=== PATIENT | male | born 1965 | race Caucasian/White ===

== ENCOUNTER 2021-10-15 09:35 | Inpatient (IN) | payer BC, OTHER ==
[2021-10-15 10:19] VITALS: BMI 30.1
[2021-10-15] MEDS ORDERED: NICOTINE 10 MG CARTRIDGE (INHALER) IH PRN (12:00)
[2021-10-15] MEDS ORDERED: LOPERAMIDE HCL 2 MG CAPSULE PO PRN (12:00)
[2021-10-15] MEDS ORDERED: ACETAMINOPHEN 325 MG TABLET (FP) PO PRN (12:00)
[2021-10-15] MEDS ORDERED: MAGNESIUM CITRATE 300 ML BOTTLE PO PRN (12:00)
[2021-10-15] MEDS ORDERED: IBUPROFEN 400 MG TABLET (FP) PO PRN (12:00)
[2021-10-15] MEDS ORDERED: MAGNESIUM HYDROX 2400MG/30ML ORAL SUSPENSION 30 ML CUP PO PRN (12:00)
[2021-10-15] MEDS ORDERED: P-EPHED 60MG/TRIPROLIDI 2.5MG TABLET PO PRN (12:00)
[2021-10-15 16:10] LABS: ALBUMIN 3.9 g/dl (3.4-5.0)
[2021-10-15 16:13] LABS: CALCIUM 9.1 mg/dL (8.5-10.1); CREATININE 1.3 mg/dL (0.55-1.3)
[2021-10-15 16:14] LABS: TOT PROT 7.2 g/dl (6.4-8.2)
[2021-10-15 16:16] LABS: BILIRUBIN,TOTAL 0.7 mg/dL (0.2-1)
[2021-10-15 16:19] LABS: HEMATOCRIT 38.5 % (35.4-49); HEMOGLOBIN 12.6 GM/dL (11.7-16.9); MCH 27.4 pg (25.7-33.7); MCHC 32.9 g/dl (32.0-35.9); MEAN CELL VOLUME 83.4 fl (80-96); MEAN PLT VOLUME 9.3 fl (7.5-11.1); PLATELET COUNT 162 10^3/uL (134-434); RBC 4.61 M/mm3 (4.00-5.60); WHITE BLOOD COUNT 8.8 K/mm3 (4.0-10.0)
[2021-10-15] MEDS: NICOTINE 7 MG/24 HOURS TOPICAL PATCH TD SCH (17:05)
[2021-10-15] MEDS: hydrOXYzine PAMOATE 25 MG CAPSULE (FP) PO SCH ×2 (17:06→17:10)
[2021-10-15] MEDS: PRENATAL VITAMINS W/ FOLIC ACID TABLET (FP) PO SCH (17:06)
[2021-10-15] MEDS ORDERED: TUBERCULIN PPD 5 TU/0.1ML VIAL ID ONE (17:31)
[2021-10-15] MEDS ORDERED: methaDONE HCL 10 MG TABLET PO SCH (18:30)
[2021-10-15] MEDS: MELATONIN 5 MG TABLETS PO SCH (21:46)
[2021-10-15] MEDS: THIAMINE HCL 100 MG TABLET (FP) PO SCH (21:46)
[2021-10-15 22:34] LABS: SYPHILIS W/ RPR CONF REACTIVE (NONREACTIVE)
[2021-10-16] MEDS: NICOTINE 7 MG/24 HOURS TOPICAL PATCH TD SCH (10:08)
[2021-10-16] MEDS: PRENATAL VITAMINS W/ FOLIC ACID TABLET (FP) PO SCH (10:08)
[2021-10-16 11:11] LABS: PH,URINE 5.5 (5.0-8.0); URINE APPEARANCE CLEAR; URINE BILIRUBIN NEGATIVE (NEGATIVE); URINE COLOR YELLOW; URINE GLUCOSE (UA) NEGATIVE (NEGATIVE); URINE KETONE NEGATIVE (NEGATIVE); URINE LEUK ESTERASE NEGATIVE (NEGATIVE); URINE NITRITE NEGATIVE (NEGATIVE); URINE PROTEIN NEGATIVE (NEGATIVE)
[2021-10-16] MEDS ORDERED: IBUPROFEN 400 MG TABLET (FP) PO PRN (12:00)
[2021-10-16] MEDS: METHOCARBAMOL 500 MG TABLET PO PRN (13:01)
[2021-10-16] MEDS: THIAMINE HCL 100 MG TABLET (FP) PO SCH (21:21)
[2021-10-16] MEDS: MELATONIN 5 MG TABLETS PO SCH (21:21)
[2021-10-16] MEDS: MIRTAZAPINE 15 MG TABLET (FP) PO SCH (21:22)
[2021-10-17] MEDS: guaiFENesin 200 MG/10 ML 10 ML UNIT-DOSE CUPS PO PRN (01:49)
[2021-10-17] MEDS: NICOTINE 7 MG/24 HOURS TOPICAL PATCH TD SCH (09:35)
[2021-10-17] MEDS: PARoxetine HCL 10 MG TABLET PO SCH (09:36)
[2021-10-17] MEDS: PRENATAL VITAMINS W/ FOLIC ACID TABLET (FP) PO SCH (09:36)
[2021-10-17] MEDS: NICOTINE 21 MG/24 HOURS TOPICAL PATCH TD SCH (10:19)
[2021-10-17] MEDS: GABAPENTIN 300 MG CAPSULE PO SCH ×2 (14:08→21:04)
[2021-10-17] MEDS: MIRTAZAPINE 15 MG TABLET (FP) PO SCH (21:04)
[2021-10-17] MEDS: MELATONIN 5 MG TABLETS PO SCH (21:04)
[2021-10-17] MEDS: THIAMINE HCL 100 MG TABLET (FP) PO SCH (21:04)
[2021-10-18] MEDS: GABAPENTIN 300 MG CAPSULE PO SCH ×3 (06:16→21:03)
[2021-10-18] MEDS: METHOCARBAMOL 500 MG TABLET PO PRN ×2 (06:16→21:03)
[2021-10-18] MEDS: NICOTINE 21 MG/24 HOURS TOPICAL PATCH TD SCH (09:57)
[2021-10-18] MEDS: PARoxetine HCL 10 MG TABLET PO SCH (09:58)
[2021-10-18] MEDS: PRENATAL VITAMINS W/ FOLIC ACID TABLET (FP) PO SCH (09:59)
[2021-10-18] MEDS: MIRTAZAPINE 15 MG TABLET (FP) PO SCH (21:03)
[2021-10-18] MEDS: THIAMINE HCL 100 MG TABLET (FP) PO SCH (21:03)
[2021-10-18] MEDS: MELATONIN 5 MG TABLETS PO SCH (21:03)
[2021-10-18] MEDS: MAG HYDROX/AL HYDROX/SIMETH 30 ML UNIT-DOSE CUP PO PRN (21:04)
[2021-10-19] MEDS: MAG HYDROX/AL HYDROX/SIMETH 30 ML UNIT-DOSE CUP PO PRN ×2 (06:06→19:17)
[2021-10-19] MEDS: GABAPENTIN 300 MG CAPSULE PO SCH ×3 (06:06→21:38)
[2021-10-19] MEDS: PRENATAL VITAMINS W/ FOLIC ACID TABLET (FP) PO SCH (09:40)
[2021-10-19] MEDS: NICOTINE 21 MG/24 HOURS TOPICAL PATCH TD SCH (09:40)
[2021-10-19] MEDS: PARoxetine HCL 10 MG TABLET PO SCH (09:40)
[2021-10-19] MEDS: METHOCARBAMOL 500 MG TABLET PO PRN (21:38)
[2021-10-19] MEDS: MIRTAZAPINE 15 MG TABLET (FP) PO SCH (21:38)
[2021-10-19] MEDS: THIAMINE HCL 100 MG TABLET (FP) PO SCH (21:38)
[2021-10-19] MEDS: MELATONIN 5 MG TABLETS PO SCH (21:39)
[2021-10-20] MEDS: GABAPENTIN 300 MG CAPSULE PO SCH ×3 (06:10→21:14)
[2021-10-20] MEDS: NICOTINE 21 MG/24 HOURS TOPICAL PATCH TD SCH (09:24)
[2021-10-20] MEDS: PRENATAL VITAMINS W/ FOLIC ACID TABLET (FP) PO SCH (09:24)
[2021-10-20] MEDS: PARoxetine HCL 10 MG TABLET PO SCH (09:24)
[2021-10-20] MEDS: MAG HYDROX/AL HYDROX/SIMETH 30 ML UNIT-DOSE CUP PO PRN (12:19)
[2021-10-20] MEDS: THIAMINE HCL 100 MG TABLET (FP) PO SCH (21:14)
[2021-10-20] MEDS: hydrOXYzine PAMOATE 25 MG CAPSULE (FP) PO PRN (21:14)
[2021-10-20] MEDS: METHOCARBAMOL 500 MG TABLET PO PRN (21:14)
[2021-10-20] MEDS: MIRTAZAPINE 15 MG TABLET (FP) PO SCH (21:14)
[2021-10-20] MEDS: MELATONIN 5 MG TABLETS PO SCH (21:16)
[2021-10-21] MEDS: MAG HYDROX/AL HYDROX/SIMETH 30 ML UNIT-DOSE CUP PO PRN (03:59)
[2021-10-21] MEDS: GABAPENTIN 300 MG CAPSULE PO SCH ×3 (06:25→21:17)
[2021-10-21] MEDS: NICOTINE 21 MG/24 HOURS TOPICAL PATCH TD SCH (09:48)
[2021-10-21] MEDS: PARoxetine HCL 10 MG TABLET PO SCH (09:49)
[2021-10-21] MEDS: PRENATAL VITAMINS W/ FOLIC ACID TABLET (FP) PO SCH (09:49)
[2021-10-21] MEDS: FAMOTIDINE 20 MG TABLET PO SCH ×2 (10:36→21:17)
[2021-10-21] MEDS: MELATONIN 5 MG TABLETS PO SCH (21:17)
[2021-10-21] MEDS: METHOCARBAMOL 500 MG TABLET PO PRN (21:17)
[2021-10-21] MEDS: THIAMINE HCL 100 MG TABLET (FP) PO SCH (21:17)
[2021-10-21] MEDS: MIRTAZAPINE 15 MG TABLET (FP) PO SCH (21:17)
[2021-10-22] MEDS: GABAPENTIN 300 MG CAPSULE PO SCH ×3 (06:28→21:09)
[2021-10-22] MEDS: METHOCARBAMOL 500 MG TABLET PO PRN ×3 (06:28→21:09)
[2021-10-22] MEDS: IBUPROFEN 400 MG TABLET (FP) PO PRN (08:18)
[2021-10-22] MEDS: NICOTINE 21 MG/24 HOURS TOPICAL PATCH TD SCH (09:29)
[2021-10-22] MEDS: LIDOCAINE 5% TOPICAL PATCH TP SCH (09:29)
[2021-10-22] MEDS: FAMOTIDINE 20 MG TABLET PO SCH ×2 (09:29→21:09)
[2021-10-22] MEDS: PRENATAL VITAMINS W/ FOLIC ACID TABLET (FP) PO SCH (09:29)
[2021-10-22] MEDS: PARoxetine HCL 10 MG TABLET PO SCH (09:30)
[2021-10-22] MEDS: MELATONIN 5 MG TABLETS PO SCH (21:09)
[2021-10-22] MEDS: THIAMINE HCL 100 MG TABLET (FP) PO SCH (21:09)
[2021-10-22] MEDS: MIRTAZAPINE 15 MG TABLET (FP) PO SCH (21:09)
[2021-10-22] MEDS: LIDOCAINE PATCH REMOVAL MC SCH (21:10)
[2021-10-22] MEDS: METHYL SALICYLATE/MENTHOL OINT 30 GM TUBE TP SCH (21:10)
[2021-10-23] MEDS: IBUPROFEN 400 MG TABLET (FP) PO PRN (02:50)
[2021-10-23] MEDS: GABAPENTIN 300 MG CAPSULE PO SCH ×3 (06:38→21:14)
[2021-10-23] MEDS: METHOCARBAMOL 500 MG TABLET PO PRN ×2 (06:38→21:14)
[2021-10-23] MEDS: LIDOCAINE 5% TOPICAL PATCH TP SCH (09:14)
[2021-10-23] MEDS: NICOTINE 21 MG/24 HOURS TOPICAL PATCH TD SCH (09:14)
[2021-10-23] MEDS: FAMOTIDINE 20 MG TABLET PO SCH ×2 (09:15→21:14)
[2021-10-23] MEDS: PRENATAL VITAMINS W/ FOLIC ACID TABLET (FP) PO SCH (09:15)
[2021-10-23] MEDS: PARoxetine HCL 10 MG TABLET PO SCH (09:15)
[2021-10-23] MEDS: THIAMINE HCL 100 MG TABLET (FP) PO SCH (21:14)
[2021-10-23] MEDS: MIRTAZAPINE 15 MG TABLET (FP) PO SCH (21:14)
[2021-10-23] MEDS: MELATONIN 5 MG TABLETS PO SCH (21:14)
[2021-10-23] MEDS: METHYL SALICYLATE/MENTHOL OINT 30 GM TUBE TP SCH (21:15)
[2021-10-23] MEDS: LIDOCAINE PATCH REMOVAL MC SCH (21:15)
[2021-10-23] MEDS: TOLNAFTATE 1% CREAM 15 GM TUBE TP SCH (21:59)
[2021-10-24] MEDS: IBUPROFEN 400 MG TABLET (FP) PO PRN (06:08)
[2021-10-24] MEDS: METHOCARBAMOL 500 MG TABLET PO PRN (06:08)
[2021-10-24] MEDS: GABAPENTIN 300 MG CAPSULE PO SCH ×3 (06:08→21:22)
[2021-10-24] MEDS: LIDOCAINE 5% TOPICAL PATCH TP SCH (09:33)
[2021-10-24] MEDS: PARoxetine HCL 10 MG TABLET PO SCH (09:34)
[2021-10-24] MEDS: NICOTINE 21 MG/24 HOURS TOPICAL PATCH TD SCH (09:34)
[2021-10-24] MEDS: PRENATAL VITAMINS W/ FOLIC ACID TABLET (FP) PO SCH (09:34)
[2021-10-24] MEDS: FAMOTIDINE 20 MG TABLET PO SCH ×2 (09:34→21:22)
[2021-10-24] MEDS: TOLNAFTATE 1% CREAM 15 GM TUBE TP SCH ×2 (09:35→21:34)
[2021-10-24] MEDS: THIAMINE HCL 100 MG TABLET (FP) PO SCH (21:22)
[2021-10-24] MEDS: MELATONIN 5 MG TABLETS PO SCH (21:22)
[2021-10-24] MEDS: MIRTAZAPINE 15 MG TABLET (FP) PO SCH (21:22)
[2021-10-24] MEDS: METHYL SALICYLATE/MENTHOL OINT 30 GM TUBE TP SCH (21:23)
[2021-10-24] MEDS: LIDOCAINE PATCH REMOVAL MC SCH (21:23)
[2021-10-25] MEDS: GABAPENTIN 300 MG CAPSULE PO SCH ×3 (06:14→21:53)
[2021-10-25] MEDS: LIDOCAINE 5% TOPICAL PATCH TP SCH (09:37)
[2021-10-25] MEDS: FAMOTIDINE 20 MG TABLET PO SCH ×2 (09:38→21:53)
[2021-10-25] MEDS: TOLNAFTATE 1% CREAM 15 GM TUBE TP SCH ×2 (09:38→21:53)
[2021-10-25] MEDS: PARoxetine HCL 10 MG TABLET PO SCH (09:38)
[2021-10-25] MEDS: NICOTINE 21 MG/24 HOURS TOPICAL PATCH TD SCH (09:38)
[2021-10-25] MEDS: PRENATAL VITAMINS W/ FOLIC ACID TABLET (FP) PO SCH (09:38)
[2021-10-25] MEDS: METHOCARBAMOL 500 MG TABLET PO PRN (14:14)
[2021-10-25] MEDS: hydrOXYzine PAMOATE 25 MG CAPSULE (FP) PO PRN (21:53)
[2021-10-25] MEDS: THIAMINE HCL 100 MG TABLET (FP) PO SCH (21:53)
[2021-10-25] MEDS: LIDOCAINE PATCH REMOVAL MC SCH (21:53)
[2021-10-25] MEDS: MIRTAZAPINE 15 MG TABLET (FP) PO SCH (21:53)
[2021-10-25] MEDS: METHYL SALICYLATE/MENTHOL OINT 30 GM TUBE TP SCH (21:54)
[2021-10-25] MEDS: BACITRACIN 0.9 GM PACKET TP SCH (21:54)
[2021-10-25] MEDS: MELATONIN 5 MG TABLETS PO SCH (21:54)
[2021-10-26] MEDS: METHOCARBAMOL 750 MG TAB PO PRN (06:05)
[2021-10-26] MEDS: GABAPENTIN 300 MG CAPSULE PO SCH ×3 (06:05→21:14)
[2021-10-26] MEDS: IBUPROFEN 400 MG TABLET (FP) PO PRN (08:58)
[2021-10-26] MEDS: PRENATAL VITAMINS W/ FOLIC ACID TABLET (FP) PO SCH (09:01)
[2021-10-26] MEDS: PARoxetine HCL 10 MG TABLET PO SCH (09:01)
[2021-10-26] MEDS: FAMOTIDINE 20 MG TABLET PO SCH ×2 (09:01→21:14)
[2021-10-26] MEDS: LIDOCAINE 5% TOPICAL PATCH TP SCH (09:01)
[2021-10-26] MEDS: BACITRACIN 0.9 GM PACKET TP SCH ×2 (09:01→21:14)
[2021-10-26] MEDS: TOLNAFTATE 1% CREAM 15 GM TUBE TP SCH ×2 (09:01→21:16)
[2021-10-26] MEDS: NICOTINE 21 MG/24 HOURS TOPICAL PATCH TD SCH (09:01)
[2021-10-26] MEDS: THIAMINE HCL 100 MG TABLET (FP) PO SCH (21:14)
[2021-10-26] MEDS: MELATONIN 5 MG TABLETS PO SCH (21:14)
[2021-10-26] MEDS: MIRTAZAPINE 15 MG TABLET (FP) PO SCH (21:14)
[2021-10-26] MEDS: hydrOXYzine PAMOATE 25 MG CAPSULE (FP) PO PRN (21:14)
[2021-10-26] MEDS: LIDOCAINE PATCH REMOVAL MC SCH (21:15)
[2021-10-26] MEDS: METHYL SALICYLATE/MENTHOL OINT 30 GM TUBE TP SCH (21:16)
[2021-10-27] MEDS: METHOCARBAMOL 750 MG TAB PO PRN (06:06)
[2021-10-27] MEDS: GABAPENTIN 300 MG CAPSULE PO SCH ×3 (06:06→21:16)
[2021-10-27] MEDS: NICOTINE 21 MG/24 HOURS TOPICAL PATCH TD SCH (09:31)
[2021-10-27] MEDS: LIDOCAINE 5% TOPICAL PATCH TP SCH (09:31)
[2021-10-27] MEDS: PRENATAL VITAMINS W/ FOLIC ACID TABLET (FP) PO SCH (09:31)
[2021-10-27] MEDS: BACITRACIN 0.9 GM PACKET TP SCH ×2 (09:33→21:16)
[2021-10-27] MEDS: FAMOTIDINE 20 MG TABLET PO SCH ×2 (09:33→21:16)
[2021-10-27] MEDS: TOLNAFTATE 1% CREAM 15 GM TUBE TP SCH ×2 (09:33→21:18)
[2021-10-27] MEDS: PARoxetine HCL 10 MG TABLET PO SCH (09:34)
[2021-10-27] MEDS: hydrOXYzine PAMOATE 25 MG CAPSULE (FP) PO PRN (21:16)
[2021-10-27] MEDS: MIRTAZAPINE 15 MG TABLET (FP) PO SCH (21:16)
[2021-10-27] MEDS: MELATONIN 5 MG TABLETS PO SCH (21:16)
[2021-10-27] MEDS: THIAMINE HCL 100 MG TABLET (FP) PO SCH (21:16)
[2021-10-27] MEDS: METHYL SALICYLATE/MENTHOL OINT 30 GM TUBE TP SCH (21:18)
[2021-10-27] MEDS: LIDOCAINE PATCH REMOVAL MC SCH (21:18)
[2021-10-28] MEDS: GABAPENTIN 300 MG CAPSULE PO SCH ×3 (06:20→21:45)
[2021-10-28] MEDS: PRENATAL VITAMINS W/ FOLIC ACID TABLET (FP) PO SCH (09:51)
[2021-10-28] MEDS: LIDOCAINE 5% TOPICAL PATCH TP SCH (09:51)
[2021-10-28] MEDS: FAMOTIDINE 20 MG TABLET PO SCH ×2 (09:51→21:45)
[2021-10-28] MEDS: TOLNAFTATE 1% CREAM 15 GM TUBE TP SCH ×2 (09:53→22:08)
[2021-10-28] MEDS: BACITRACIN 0.9 GM PACKET TP SCH ×2 (10:12→21:45)
[2021-10-28] MEDS: NICOTINE 21 MG/24 HOURS TOPICAL PATCH TD SCH (10:12)
[2021-10-28] MEDS: PARoxetine HCL 10 MG TABLET PO SCH (10:13)
[2021-10-28] MEDS: MELATONIN 5 MG TABLETS PO SCH (21:45)
[2021-10-28] MEDS: THIAMINE HCL 100 MG TABLET (FP) PO SCH (21:45)
[2021-10-28] MEDS: MIRTAZAPINE 15 MG TABLET (FP) PO SCH (21:45)
[2021-10-28] MEDS: LIDOCAINE PATCH REMOVAL MC SCH (21:45)
[2021-10-28] MEDS: METHYL SALICYLATE/MENTHOL OINT 30 GM TUBE TP SCH (22:07)
[2021-10-29] MEDS: IBUPROFEN 400 MG TABLET (FP) PO PRN (03:30)
[2021-10-29] MEDS: METHOCARBAMOL 750 MG TAB PO PRN (06:13)
[2021-10-29] MEDS: GABAPENTIN 300 MG CAPSULE PO SCH ×3 (06:13→21:58)
[2021-10-29] MEDS: NICOTINE 21 MG/24 HOURS TOPICAL PATCH TD SCH (10:12)
[2021-10-29] MEDS: LIDOCAINE 5% TOPICAL PATCH TP SCH (10:12)
[2021-10-29] MEDS: TOLNAFTATE 1% CREAM 15 GM TUBE TP SCH ×2 (10:13→21:58)
[2021-10-29] MEDS: FAMOTIDINE 20 MG TABLET PO SCH ×2 (10:13→21:58)
[2021-10-29] MEDS: PARoxetine HCL 10 MG TABLET PO SCH (10:13)
[2021-10-29] MEDS: BACITRACIN 0.9 GM PACKET TP SCH ×2 (10:13→21:58)
[2021-10-29] MEDS: PRENATAL VITAMINS W/ FOLIC ACID TABLET (FP) PO SCH (10:13)
[2021-10-29] MEDS: MELATONIN 5 MG TABLETS PO SCH (21:58)
[2021-10-29] MEDS: MIRTAZAPINE 15 MG TABLET (FP) PO SCH (21:58)
[2021-10-29] MEDS: THIAMINE HCL 100 MG TABLET (FP) PO SCH (21:58)
[2021-10-29] MEDS: LIDOCAINE PATCH REMOVAL MC SCH (21:59)
[2021-10-29] MEDS: METHYL SALICYLATE/MENTHOL OINT 30 GM TUBE TP SCH (22:00)
[2021-10-30] MEDS: GABAPENTIN 300 MG CAPSULE PO SCH ×3 (06:02→21:29)
[2021-10-30] MEDS: METHOCARBAMOL 750 MG TAB PO PRN (06:02)
[2021-10-30] MEDS: LIDOCAINE 5% TOPICAL PATCH TP SCH (09:07)
[2021-10-30] MEDS: BACITRACIN 0.9 GM PACKET TP SCH ×2 (09:07→21:29)
[2021-10-30] MEDS: NICOTINE 21 MG/24 HOURS TOPICAL PATCH TD SCH (09:08)
[2021-10-30] MEDS: PARoxetine HCL 10 MG TABLET PO SCH (09:08)
[2021-10-30] MEDS: FAMOTIDINE 20 MG TABLET PO SCH ×2 (09:09→21:29)
[2021-10-30] MEDS: PRENATAL VITAMINS W/ FOLIC ACID TABLET (FP) PO SCH (09:09)
[2021-10-30] MEDS: TOLNAFTATE 1% CREAM 15 GM TUBE TP SCH ×2 (09:10→21:30)
[2021-10-30] MEDS: hydrOXYzine PAMOATE 25 MG CAPSULE (FP) PO PRN (21:29)
[2021-10-30] MEDS: MELATONIN 5 MG TABLETS PO SCH (21:29)
[2021-10-30] MEDS: MIRTAZAPINE 15 MG TABLET (FP) PO SCH (21:29)
[2021-10-30] MEDS: THIAMINE HCL 100 MG TABLET (FP) PO SCH (21:29)
[2021-10-30] MEDS: METHYL SALICYLATE/MENTHOL OINT 30 GM TUBE TP SCH (21:30)
[2021-10-30] MEDS: LIDOCAINE PATCH REMOVAL MC SCH (21:30)
[2021-10-31] MEDS: GABAPENTIN 300 MG CAPSULE PO SCH ×3 (06:06→21:18)
[2021-10-31] MEDS: METHOCARBAMOL 750 MG TAB PO PRN (06:07)
[2021-10-31] MEDS: BACITRACIN 0.9 GM PACKET TP SCH ×2 (09:12→21:18)
[2021-10-31] MEDS: LIDOCAINE 5% TOPICAL PATCH TP SCH (09:12)
[2021-10-31] MEDS: NICOTINE 21 MG/24 HOURS TOPICAL PATCH TD SCH (09:12)
[2021-10-31] MEDS: PRENATAL VITAMINS W/ FOLIC ACID TABLET (FP) PO SCH (09:13)
[2021-10-31] MEDS: PARoxetine HCL 10 MG TABLET PO SCH (09:13)
[2021-10-31] MEDS: FAMOTIDINE 20 MG TABLET PO SCH ×2 (09:13→21:18)
[2021-10-31] MEDS: TOLNAFTATE 1% CREAM 15 GM TUBE TP SCH ×2 (09:21→22:11)
[2021-10-31] MEDS: hydrOXYzine PAMOATE 25 MG CAPSULE (FP) PO PRN (21:18)
[2021-10-31] MEDS: METHYL SALICYLATE/MENTHOL OINT 30 GM TUBE TP SCH (21:18)
[2021-10-31] MEDS: THIAMINE HCL 100 MG TABLET (FP) PO SCH (21:18)
[2021-10-31] MEDS: MELATONIN 5 MG TABLETS PO SCH (21:18)
[2021-10-31] MEDS: LIDOCAINE PATCH REMOVAL MC SCH (21:18)
[2021-10-31] MEDS: MIRTAZAPINE 15 MG TABLET (FP) PO SCH (21:18)
[2021-11-01] MEDS: METHOCARBAMOL 750 MG TAB PO PRN (06:17)
[2021-11-01] MEDS: GABAPENTIN 300 MG CAPSULE PO SCH ×3 (06:17→21:18)
[2021-11-01] MEDS: FAMOTIDINE 20 MG TABLET PO SCH ×2 (09:40→21:18)
[2021-11-01] MEDS: LIDOCAINE 5% TOPICAL PATCH TP SCH (09:40)
[2021-11-01] MEDS: PRENATAL VITAMINS W/ FOLIC ACID TABLET (FP) PO SCH (09:40)
[2021-11-01] MEDS: NICOTINE 21 MG/24 HOURS TOPICAL PATCH TD SCH (09:40)
[2021-11-01] MEDS: PARoxetine HCL 10 MG TABLET PO SCH (09:40)
[2021-11-01] MEDS: BACITRACIN 0.9 GM PACKET TP SCH ×2 (09:41→21:19)
[2021-11-01] MEDS: TOLNAFTATE 1% CREAM 15 GM TUBE TP SCH ×2 (09:41→21:19)
[2021-11-01] MEDS: hydrOXYzine PAMOATE 25 MG CAPSULE (FP) PO PRN (21:18)
[2021-11-01] MEDS: MIRTAZAPINE 15 MG TABLET (FP) PO SCH (21:18)
[2021-11-01] MEDS: MELATONIN 5 MG TABLETS PO SCH (21:18)
[2021-11-01] MEDS: THIAMINE HCL 100 MG TABLET (FP) PO SCH (21:18)
[2021-11-01] MEDS: LIDOCAINE PATCH REMOVAL MC SCH (21:19)
[2021-11-01] MEDS: METHYL SALICYLATE/MENTHOL OINT 30 GM TUBE TP SCH (21:19)
[2021-11-02] MEDS: GABAPENTIN 300 MG CAPSULE PO SCH ×3 (06:11→21:44)
[2021-11-02] MEDS: METHOCARBAMOL 750 MG TAB PO PRN (08:54)
[2021-11-02] MEDS: IBUPROFEN 400 MG TABLET (FP) PO PRN (08:54)
[2021-11-02] MEDS: LIDOCAINE 5% TOPICAL PATCH TP SCH (09:54)
[2021-11-02] MEDS: PRENATAL VITAMINS W/ FOLIC ACID TABLET (FP) PO SCH (09:54)
[2021-11-02] MEDS: FAMOTIDINE 20 MG TABLET PO SCH ×2 (09:54→21:44)
[2021-11-02] MEDS: BACITRACIN 0.9 GM PACKET TP SCH ×2 (09:55→21:46)
[2021-11-02] MEDS: NICOTINE 21 MG/24 HOURS TOPICAL PATCH TD SCH (09:55)
[2021-11-02] MEDS: PARoxetine HCL 10 MG TABLET PO SCH (09:55)
[2021-11-02] MEDS: TOLNAFTATE 1% CREAM 15 GM TUBE TP SCH ×2 (09:55→21:47)
[2021-11-02] MEDS: hydrOXYzine PAMOATE 25 MG CAPSULE (FP) PO PRN (21:44)
[2021-11-02] MEDS: LIDOCAINE PATCH REMOVAL MC SCH (21:44)
[2021-11-02] MEDS: THIAMINE HCL 100 MG TABLET (FP) PO SCH (21:44)
[2021-11-02] MEDS: MIRTAZAPINE 15 MG TABLET (FP) PO SCH (21:44)
[2021-11-02] MEDS: MELATONIN 5 MG TABLETS PO SCH (21:44)
[2021-11-02] MEDS: METHYL SALICYLATE/MENTHOL OINT 30 GM TUBE TP SCH (21:45)
[2021-11-03] MEDS: guaiFENesin 200 MG/10 ML 10 ML UNIT-DOSE CUPS PO PRN (00:58)
[2021-11-03] MEDS: GABAPENTIN 300 MG CAPSULE PO SCH ×3 (06:22→21:35)
[2021-11-03] MEDS: FAMOTIDINE 20 MG TABLET PO SCH ×2 (09:27→21:35)
[2021-11-03] MEDS: LIDOCAINE 5% TOPICAL PATCH TP SCH (09:28)
[2021-11-03] MEDS: TOLNAFTATE 1% CREAM 15 GM TUBE TP SCH ×2 (09:28→21:35)
[2021-11-03] MEDS: PRENATAL VITAMINS W/ FOLIC ACID TABLET (FP) PO SCH (09:28)
[2021-11-03] MEDS: NICOTINE 21 MG/24 HOURS TOPICAL PATCH TD SCH (09:28)
[2021-11-03] MEDS: BACITRACIN 0.9 GM PACKET TP SCH ×2 (09:28→21:36)
[2021-11-03] MEDS: PARoxetine HCL 10 MG TABLET PO SCH (09:28)
[2021-11-03] MEDS: MIRTAZAPINE 15 MG TABLET (FP) PO SCH (21:35)
[2021-11-03] MEDS: METHYL SALICYLATE/MENTHOL OINT 30 GM TUBE TP SCH (21:35)
[2021-11-03] MEDS: LIDOCAINE PATCH REMOVAL MC SCH (21:35)
[2021-11-03] MEDS: THIAMINE HCL 100 MG TABLET (FP) PO SCH (21:35)
[2021-11-03] MEDS: METHOCARBAMOL 750 MG TAB PO PRN (21:35)
[2021-11-03] MEDS: MELATONIN 5 MG TABLETS PO SCH (21:36)
[2021-11-04] MEDS: GABAPENTIN 300 MG CAPSULE PO SCH ×3 (06:15→21:48)
[2021-11-04] MEDS: METHOCARBAMOL 750 MG TAB PO PRN (06:15)
[2021-11-04] MEDS: BACITRACIN 0.9 GM PACKET TP SCH ×2 (09:31→21:49)
[2021-11-04] MEDS: LIDOCAINE 5% TOPICAL PATCH TP SCH (09:31)
[2021-11-04] MEDS: PARoxetine HCL 10 MG TABLET PO SCH (09:32)
[2021-11-04] MEDS: FAMOTIDINE 20 MG TABLET PO SCH ×2 (09:32→21:48)
[2021-11-04] MEDS: PRENATAL VITAMINS W/ FOLIC ACID TABLET (FP) PO SCH (09:32)
[2021-11-04] MEDS: NICOTINE 21 MG/24 HOURS TOPICAL PATCH TD SCH (09:32)
[2021-11-04] MEDS: TOLNAFTATE 1% CREAM 15 GM TUBE TP SCH ×2 (09:33→21:50)
[2021-11-04] MEDS: IBUPROFEN 400 MG TABLET (FP) PO PRN (11:40)
[2021-11-04] MEDS: METHYL SALICYLATE/MENTHOL OINT 30 GM TUBE TP SCH (21:47)
[2021-11-04] MEDS: MELATONIN 5 MG TABLETS PO SCH (21:48)
[2021-11-04] MEDS: THIAMINE HCL 100 MG TABLET (FP) PO SCH (21:48)
[2021-11-04] MEDS: MIRTAZAPINE 15 MG TABLET (FP) PO SCH (21:48)
[2021-11-04] MEDS: LIDOCAINE PATCH REMOVAL MC SCH (21:49)
[2021-11-05] MEDS: METHOCARBAMOL 750 MG TAB PO PRN (06:10)
[2021-11-05] MEDS: GABAPENTIN 300 MG CAPSULE PO SCH ×3 (06:10→21:13)
[2021-11-05] MEDS: NICOTINE 21 MG/24 HOURS TOPICAL PATCH TD SCH (09:26)
[2021-11-05] MEDS: LIDOCAINE 5% TOPICAL PATCH TP SCH (09:26)
[2021-11-05] MEDS: BACITRACIN 0.9 GM PACKET TP SCH ×2 (09:26→21:14)
[2021-11-05] MEDS: PARoxetine HCL 10 MG TABLET PO SCH (09:27)
[2021-11-05] MEDS: PRENATAL VITAMINS W/ FOLIC ACID TABLET (FP) PO SCH (09:27)
[2021-11-05] MEDS: FAMOTIDINE 20 MG TABLET PO SCH ×2 (09:27→21:13)
[2021-11-05] MEDS: TOLNAFTATE 1% CREAM 15 GM TUBE TP SCH ×2 (10:10→21:14)
[2021-11-05] MEDS: MIRTAZAPINE 15 MG TABLET (FP) PO SCH (21:13)
[2021-11-05] MEDS: MELATONIN 5 MG TABLETS PO SCH (21:13)
[2021-11-05] MEDS: hydrOXYzine PAMOATE 25 MG CAPSULE (FP) PO PRN (21:13)
[2021-11-05] MEDS: THIAMINE HCL 100 MG TABLET (FP) PO SCH (21:13)
[2021-11-05] MEDS: METHYL SALICYLATE/MENTHOL OINT 30 GM TUBE TP SCH (21:14)
[2021-11-05] MEDS: LIDOCAINE PATCH REMOVAL MC SCH (21:14)
[2021-11-05] MEDS: guaiFENesin 200 MG/10 ML 10 ML UNIT-DOSE CUPS PO PRN (22:40)
[2021-11-06] MEDS: METHOCARBAMOL 750 MG TAB PO PRN (06:04)
[2021-11-06] MEDS: GABAPENTIN 300 MG CAPSULE PO SCH ×3 (06:04→21:28)
[2021-11-06] MEDS: LIDOCAINE 5% TOPICAL PATCH TP SCH (09:41)
[2021-11-06] MEDS: PARoxetine HCL 10 MG TABLET PO SCH (09:42)
[2021-11-06] MEDS: FAMOTIDINE 20 MG TABLET PO SCH ×2 (09:42→21:28)
[2021-11-06] MEDS: PRENATAL VITAMINS W/ FOLIC ACID TABLET (FP) PO SCH (09:42)
[2021-11-06] MEDS: TOLNAFTATE 1% CREAM 15 GM TUBE TP SCH ×2 (09:43→21:29)
[2021-11-06] MEDS: NICOTINE 21 MG/24 HOURS TOPICAL PATCH TD SCH (09:43)
[2021-11-06] MEDS: BACITRACIN 0.9 GM PACKET TP SCH ×2 (09:43→21:29)
[2021-11-06] MEDS: HYDROCHLOROTHIAZIDE 12.5 MG CAPSULE (FP) PO SCH (12:13)
[2021-11-06] MEDS: MELATONIN 5 MG TABLETS PO SCH (21:27)
[2021-11-06] MEDS: THIAMINE HCL 100 MG TABLET (FP) PO SCH (21:27)
[2021-11-06] MEDS: MIRTAZAPINE 15 MG TABLET (FP) PO SCH (21:28)
[2021-11-06] MEDS: hydrOXYzine PAMOATE 25 MG CAPSULE (FP) PO PRN (21:28)
[2021-11-06] MEDS: METHYL SALICYLATE/MENTHOL OINT 30 GM TUBE TP SCH (21:28)
[2021-11-06] MEDS: LIDOCAINE PATCH REMOVAL MC SCH (21:29)
[2021-11-07] MEDS: GABAPENTIN 300 MG CAPSULE PO SCH ×3 (06:15→21:18)
[2021-11-07] MEDS: HYDROCHLOROTHIAZIDE 12.5 MG CAPSULE (FP) PO SCH (10:17)
[2021-11-07] MEDS: FAMOTIDINE 20 MG TABLET PO SCH ×2 (10:17→21:18)
[2021-11-07] MEDS: LIDOCAINE 5% TOPICAL PATCH TP SCH (10:17)
[2021-11-07] MEDS: NICOTINE 21 MG/24 HOURS TOPICAL PATCH TD SCH (10:17)
[2021-11-07] MEDS: PRENATAL VITAMINS W/ FOLIC ACID TABLET (FP) PO SCH (10:17)
[2021-11-07] MEDS: BACITRACIN 0.9 GM PACKET TP SCH ×2 (10:17→21:19)
[2021-11-07] MEDS: TOLNAFTATE 1% CREAM 15 GM TUBE TP SCH ×2 (10:18→21:29)
[2021-11-07] MEDS: PARoxetine HCL 10 MG TABLET PO SCH (10:18)
[2021-11-07] MEDS: THIAMINE HCL 100 MG TABLET (FP) PO SCH (21:18)
[2021-11-07] MEDS: MIRTAZAPINE 15 MG TABLET (FP) PO SCH (21:18)
[2021-11-07] MEDS: MELATONIN 5 MG TABLETS PO SCH (21:18)
[2021-11-07] MEDS: METHYL SALICYLATE/MENTHOL OINT 30 GM TUBE TP SCH (21:19)
[2021-11-07] MEDS: LIDOCAINE PATCH REMOVAL MC SCH (21:19)
[2021-11-08] MEDS: GABAPENTIN 300 MG CAPSULE PO SCH ×3 (06:22→21:35)
[2021-11-08] MEDS: FAMOTIDINE 20 MG TABLET PO SCH ×2 (09:44→21:35)
[2021-11-08] MEDS: NICOTINE 21 MG/24 HOURS TOPICAL PATCH TD SCH (09:45)
[2021-11-08] MEDS: PARoxetine HCL 10 MG TABLET PO SCH (09:45)
[2021-11-08] MEDS: TOLNAFTATE 1% CREAM 15 GM TUBE TP SCH ×2 (09:45→21:38)
[2021-11-08] MEDS: HYDROCHLOROTHIAZIDE 12.5 MG CAPSULE (FP) PO SCH (09:45)
[2021-11-08] MEDS: LIDOCAINE 5% TOPICAL PATCH TP SCH (09:45)
[2021-11-08] MEDS: PRENATAL VITAMINS W/ FOLIC ACID TABLET (FP) PO SCH (09:45)
[2021-11-08] MEDS: BACITRACIN 0.9 GM PACKET TP SCH ×2 (09:45→21:38)
[2021-11-08] MEDS: THIAMINE HCL 100 MG TABLET (FP) PO SCH (21:35)
[2021-11-08] MEDS: MIRTAZAPINE 15 MG TABLET (FP) PO SCH (21:35)
[2021-11-08] MEDS: IBUPROFEN 400 MG TABLET (FP) PO PRN (21:36)
[2021-11-08] MEDS: hydrOXYzine PAMOATE 25 MG CAPSULE (FP) PO PRN (21:36)
[2021-11-08] MEDS: LIDOCAINE PATCH REMOVAL MC SCH (21:37)
[2021-11-08] MEDS: MELATONIN 5 MG TABLETS PO SCH (21:37)
[2021-11-08] MEDS: METHYL SALICYLATE/MENTHOL OINT 30 GM TUBE TP SCH (21:38)
[2021-11-09] MEDS: GABAPENTIN 300 MG CAPSULE PO SCH ×3 (06:16→21:15)
[2021-11-09] MEDS: METHOCARBAMOL 750 MG TAB PO PRN (06:17)
[2021-11-09] MEDS: IBUPROFEN 400 MG TABLET (FP) PO PRN (08:34)
[2021-11-09] MEDS: HYDROCHLOROTHIAZIDE 12.5 MG CAPSULE (FP) PO SCH (09:17)
[2021-11-09] MEDS: PRENATAL VITAMINS W/ FOLIC ACID TABLET (FP) PO SCH (09:17)
[2021-11-09] MEDS: BACITRACIN 0.9 GM PACKET TP SCH ×2 (09:17→21:15)
[2021-11-09] MEDS: FAMOTIDINE 20 MG TABLET PO SCH ×2 (09:17→21:15)
[2021-11-09] MEDS: LIDOCAINE 5% TOPICAL PATCH TP SCH (09:17)
[2021-11-09] MEDS: TOLNAFTATE 1% CREAM 15 GM TUBE TP SCH ×2 (09:18→21:16)
[2021-11-09] MEDS: PARoxetine HCL 10 MG TABLET PO SCH (09:18)
[2021-11-09] MEDS: NICOTINE 21 MG/24 HOURS TOPICAL PATCH TD SCH (09:18)
[2021-11-09] MEDS: MELATONIN 5 MG TABLETS PO SCH (21:15)
[2021-11-09] MEDS: MIRTAZAPINE 15 MG TABLET (FP) PO SCH (21:15)
[2021-11-09] MEDS: hydrOXYzine PAMOATE 25 MG CAPSULE (FP) PO PRN (21:15)
[2021-11-09] MEDS: THIAMINE HCL 100 MG TABLET (FP) PO SCH (21:15)
[2021-11-09] MEDS: METHYL SALICYLATE/MENTHOL OINT 30 GM TUBE TP SCH (21:16)
[2021-11-09] MEDS: LIDOCAINE PATCH REMOVAL MC SCH (21:16)
[2021-11-10] MEDS: GABAPENTIN 300 MG CAPSULE PO SCH ×3 (06:40→21:24)
[2021-11-10] MEDS: METHOCARBAMOL 750 MG TAB PO PRN (06:40)
[2021-11-10] MEDS: LIDOCAINE 5% TOPICAL PATCH TP SCH (09:53)
[2021-11-10] MEDS: BACITRACIN 0.9 GM PACKET TP SCH ×2 (09:53→21:24)
[2021-11-10] MEDS: FAMOTIDINE 20 MG TABLET PO SCH ×2 (09:54→21:24)
[2021-11-10] MEDS: TOLNAFTATE 1% CREAM 15 GM TUBE TP SCH ×2 (09:54→21:24)
[2021-11-10] MEDS: HYDROCHLOROTHIAZIDE 12.5 MG CAPSULE (FP) PO SCH (09:54)
[2021-11-10] MEDS: PARoxetine HCL 10 MG TABLET PO SCH (09:54)
[2021-11-10] MEDS: PRENATAL VITAMINS W/ FOLIC ACID TABLET (FP) PO SCH (09:54)
[2021-11-10] MEDS: NICOTINE 21 MG/24 HOURS TOPICAL PATCH TD SCH (09:55)
[2021-11-10] MEDS: MIRTAZAPINE 15 MG TABLET (FP) PO SCH (21:24)
[2021-11-10] MEDS: LIDOCAINE PATCH REMOVAL MC SCH (21:24)
[2021-11-10] MEDS: MELATONIN 5 MG TABLETS PO SCH (21:24)
[2021-11-10] MEDS: METHYL SALICYLATE/MENTHOL OINT 30 GM TUBE TP SCH (21:24)
[2021-11-10] MEDS: hydrOXYzine PAMOATE 25 MG CAPSULE (FP) PO PRN (21:24)
[2021-11-10] MEDS: THIAMINE HCL 100 MG TABLET (FP) PO SCH (21:24)
[2021-11-11] MEDS: GABAPENTIN 300 MG CAPSULE PO SCH ×3 (06:13→21:16)
[2021-11-11] MEDS: HYDROCHLOROTHIAZIDE 12.5 MG CAPSULE (FP) PO SCH (09:46)
[2021-11-11] MEDS: FAMOTIDINE 20 MG TABLET PO SCH ×2 (09:46→21:16)
[2021-11-11] MEDS: PRENATAL VITAMINS W/ FOLIC ACID TABLET (FP) PO SCH (09:46)
[2021-11-11] MEDS: NICOTINE 21 MG/24 HOURS TOPICAL PATCH TD SCH (09:47)
[2021-11-11] MEDS: LIDOCAINE 5% TOPICAL PATCH TP SCH (09:47)
[2021-11-11] MEDS: BACITRACIN 0.9 GM PACKET TP SCH ×2 (09:47→21:16)
[2021-11-11] MEDS: PARoxetine HCL 10 MG TABLET PO SCH (09:47)
[2021-11-11] MEDS: TOLNAFTATE 1% CREAM 15 GM TUBE TP SCH ×2 (09:48→21:17)
[2021-11-11] MEDS: MIRTAZAPINE 15 MG TABLET (FP) PO SCH (21:16)
[2021-11-11] MEDS: THIAMINE HCL 100 MG TABLET (FP) PO SCH (21:16)
[2021-11-11] MEDS: MELATONIN 5 MG TABLETS PO SCH (21:16)
[2021-11-11] MEDS: METHYL SALICYLATE/MENTHOL OINT 30 GM TUBE TP SCH (21:17)
[2021-11-11] MEDS: LIDOCAINE PATCH REMOVAL MC SCH (21:17)
[2021-11-12] MEDS: METHOCARBAMOL 750 MG TAB PO PRN (06:09)
[2021-11-12] MEDS: GABAPENTIN 300 MG CAPSULE PO SCH (06:09)
[2021-11-12 06:30] VITALS: TEMP 97
[2021-11-12] MEDS: PRENATAL VITAMINS W/ FOLIC ACID TABLET (FP) PO SCH (09:15)
[2021-11-12] MEDS: NICOTINE 21 MG/24 HOURS TOPICAL PATCH TD SCH (09:15)
[2021-11-12] MEDS: PARoxetine HCL 10 MG TABLET PO SCH (09:15)
[2021-11-12] MEDS: FAMOTIDINE 20 MG TABLET PO SCH (09:15)
[2021-11-12] MEDS: HYDROCHLOROTHIAZIDE 12.5 MG CAPSULE (FP) PO SCH (09:15)
[2021-11-12] MEDS: LIDOCAINE 5% TOPICAL PATCH TP SCH (09:16)
[2021-11-12] MEDS: BACITRACIN 0.9 GM PACKET TP SCH (09:16)
[2021-11-12 10:47] VITALS: BP 124/76; PULSE 75; RESP 17
== END 2021-11-12 09:25 | disposition home or self-care (01) | DRG 772 ==
LOC: SUATTDRO 09:35 → YASAS 09:35 → Y3E 15:16
PROVIDERS: ADMIT Allergy & Immunology; ATTEND Psychiatry & Neurology Psychiatry
PROC: HZ42ZZZ Group Counseling for Substance Abuse Treatment, Cognitive-Behavioral (ICD-10-PCS; principal; 2021-10-15)
DX: F11.20 Opioid dependence, uncomplicated (principal); F14.20 Cocaine dependence, uncomplicated; F12.10 Cannabis abuse, uncomplicated; F17.210 Nicotine dependence, cigarettes, uncomplicated; F41.9 Anxiety disorder, unspecified; F32.A Depression, unspecified; F19.24 Other psychoactive substance dependence with psychoactive substance-induced mood disorder; F19.282 Other psychoactive substance dependence with psychoactive substance-induced sleep disorder; F19.280 Other psychoactive substance dependence with psychoactive substance-induced anxiety disorder; R60.0 Localized edema; I95.9 Hypotension, unspecified; R04.0 Epistaxis; Z86.19 Personal history of other infectious and parasitic diseases; Z91.013 Allergy to seafood; Z59.02 Unsheltered homelessness
CPT/HCPCS: 36415; 80053; 81003; 82962; 85027; 86593; 86780; 86803; C9803-CS; U0003; U0005

== ENCOUNTER 2021-10-29 12:59 | Emergency (ER) | payer OTHER ==
[2021-10-29 13:19] VITALS: BP 109/55; PULSE 68; RESP 18; TEMP 97.7; BMI 30.4
[2021-10-29 14:58] LABS: HEMATOCRIT 36.2 % (35.4-49); HEMOGLOBIN 11.7 GM/dL (11.7-16.9); MCH 27.7 pg (25.7-33.7); MCHC 32.4 g/dl (32.0-35.9); MEAN CELL VOLUME 85.5 fl (80-96); MEAN PLT VOLUME 9.2 fl (7.5-11.1); PLATELET COUNT 181 10^3/uL (134-434); RBC 4.23 M/mm3 (4.00-5.60); RDW 14.9 % (11.9-15.9)
[2021-10-29 15:20] LABS: CALCIUM 8.5 mg/dL (8.5-10.1)
[2021-10-29 15:21] LABS: BLOOD UREA NITROGEN 17.9 mg/dL (7-18)
[2021-10-29 15:24] LABS: CREATININE 0.8 mg/dL (0.55-1.3)
[2021-10-29 15:26] LABS: BILIRUBIN,TOTAL 0.2 mg/dL (0.2-1); TOT PROT 6.5 g/dl (6.4-8.2)
[2021-10-29 15:30] LABS: N-TERMINAL BNP 61.8 pg/ml (5-125)
== END 2021-10-29 18:12 ==
LOC: JER 12:59
DX: R60.0 Localized edema (principal); Z79.891 Long term (current) use of opiate analgesic
CPT/HCPCS: 0241U-QW; 36415; 71046-TC-FY; 80053; 83880; 84484; 85027; 93005; 93010; 93970-TC; 99285-25

== ENCOUNTER 2022-07-16 10:04 | Inpatient (IN) | payer OTHER ==
[2022-07-16 10:36] VITALS: BMI 33.4
[2022-07-16] MEDS ORDERED: BENZONATATE 200 MG CAPSULE PO PRN (12:08)
[2022-07-16] MEDS ORDERED: guaiFENesin 600 MG TABLET.ER (FP) PO PRN (12:08)
[2022-07-16] MEDS ORDERED: LOPERAMIDE HCL 2 MG CAPSULE PO PRN (12:08)
[2022-07-16] MEDS ORDERED: NALOXONE HCL 0.4 MG/ML VIAL IM PRN (12:08)
[2022-07-16] MEDS ORDERED: POLYETHYLENE GLYCOL (HEALTHYLAX) 3350 17 GM PACKET PO PRN (12:08)
[2022-07-16] MEDS ORDERED: BENZOCAINE/MENTHOL (CHLORASEPTIC ) LOZENGE MM PRN (12:08)
[2022-07-16] MEDS ORDERED: COLLOIDAL OATMEAL 1 BAR EACH TP PRN (12:08)
[2022-07-16] MEDS ORDERED: MAGNESIUM HYDROX 2400MG/30ML ORAL SUSPENSION 30 ML CUP PO PRN (12:08)
[2022-07-16] MEDS ORDERED: MAG HYDROX/AL HYDROX/SIMETH 30 ML UNIT-DOSE CUP PO PRN (12:08)
[2022-07-16] MEDS ORDERED: NALOXONE HCL (KLOXXADO) 8 MG SPRAY NS PRN (12:08)
[2022-07-16] MEDS ORDERED: NICOTINE 10 MG CARTRIDGE (INHALER) IH PRN (12:08)
[2022-07-16] MEDS ORDERED: AMMONIUM LACTATE 12% LOTION 225 GM BOTTLE TP PRN (12:08)
[2022-07-16] MEDS ORDERED: IBUPROFEN 400 MG TABLET (FP) PO PRN (12:08)
[2022-07-16] MEDS ORDERED: ACETAMINOPHEN 325 MG TABLET (FP) PO PRN (12:08)
[2022-07-16] MEDS: GABAPENTIN 300 MG CAPSULE PO SCH ×2 (17:56→21:04)
[2022-07-16] MEDS: PRENATAL VITAMINS W/ FOLIC ACID TABLET (FP) PO SCH (17:56)
[2022-07-16] MEDS: NICOTINE 21 MG/24 HOURS TOPICAL PATCH TD SCH (17:57)
[2022-07-16] MEDS: FAMOTIDINE 20 MG TABLET PO SCH ×2 (18:00→21:04)
[2022-07-16] MEDS: THIAMINE HCL 100 MG TABLET (FP) PO SCH (21:04)
[2022-07-16] MEDS: MELATONIN 5 MG TABLETS PO SCH (21:04)
[2022-07-17] MEDS: GABAPENTIN 300 MG CAPSULE PO SCH ×3 (06:26→21:15)
[2022-07-17] MEDS ORDERED: methaDONE HCL 40 MG DISPERSABLE TABLET PO SCH (07:30)
[2022-07-17] MEDS ORDERED: methaDONE 160 MG, methaDONE (DETOX) 10 MG PO SCH (07:45)
[2022-07-17] MEDS: HYDROCHLOROTHIAZIDE 12.5 MG CAPSULE (FP) PO SCH (09:52)
[2022-07-17] MEDS: FAMOTIDINE 20 MG TABLET PO SCH ×2 (09:52→21:15)
[2022-07-17] MEDS: PRENATAL VITAMINS W/ FOLIC ACID TABLET (FP) PO SCH (09:52)
[2022-07-17] MEDS: NICOTINE 21 MG/24 HOURS TOPICAL PATCH TD SCH (09:52)
[2022-07-17] MEDS: LIDOCAINE 5% TOPICAL PATCH TP SCH (09:53)
[2022-07-17 10:57] LABS: HEMOGLOBIN 13.1 GM/dL (11.7-16.9); MCH 27.5 pg (25.7-33.7); MCHC 32.9 g/dl (32.0-35.9); MEAN CELL VOLUME 83.8 fl (80-96); MEAN PLT VOLUME 10.3 fl (7.5-11.1); PLATELET COUNT 156 10^3/uL (134-434); RBC 4.77 M/mm3 (4.00-5.60); RDW 16.2 % (11.9-15.9); WHITE BLOOD COUNT 7.6 K/mm3 (4.0-10.0)
[2022-07-17 11:03] LABS: URINE APPEARANCE CLEAR; URINE BILIRUBIN NEGATIVE (NEGATIVE); URINE COLOR YELLOW; URINE GLUCOSE (UA) NEGATIVE (NEGATIVE); URINE KETONE TRACE (NEGATIVE); URINE LEUK ESTERASE NEGATIVE (NEGATIVE); URINE NITRITE NEGATIVE (NEGATIVE); URINE PROTEIN NEGATIVE (NEGATIVE); URINE UROBILINOGEN 0.2 mg/dL (0.2-1.0)
[2022-07-17 11:16] LABS: POTASSIUM 4.4 mmol/L (3.5-5.1)
[2022-07-17 11:43] LABS: ALBUMIN 3.5 g/dl (3.4-5.0); BLOOD UREA NITROGEN 16.3 mg/dL (7-18)
[2022-07-17 11:44] LABS: CALCIUM 9.1 mg/dL (8.5-10.1)
[2022-07-17 11:46] LABS: CREATININE 0.9 mg/dL (0.55-1.3)
[2022-07-17 11:47] LABS: BILIRUBIN,TOTAL 0.7 mg/dL (0.2-1); TOT PROT 6.9 g/dl (6.4-8.2)
[2022-07-17 12:25] LABS: SYPHILIS W/ RPR CONF REACTIVE (NONREACTIVE)
[2022-07-17] MEDS: METHYL SALICYLATE/MENTHOL OINT 30 GM TUBE TP PRN (15:54)
[2022-07-17] MEDS: MIRTAZAPINE 15 MG TABLET (FP) PO SCH (21:15)
[2022-07-17] MEDS: MELATONIN 5 MG TABLETS PO SCH (21:15)
[2022-07-17] MEDS: THIAMINE HCL 100 MG TABLET (FP) PO SCH (21:15)
[2022-07-17] MEDS: PARoxetine HCL 10 MG TABLET PO SCH (21:16)
[2022-07-17] MEDS: LIDOCAINE PATCH REMOVAL MC SCH (21:16)
[2022-07-18] MEDS: GABAPENTIN 300 MG CAPSULE PO SCH ×3 (06:02→21:56)
[2022-07-18] MEDS: FAMOTIDINE 20 MG TABLET PO SCH ×2 (10:13→21:56)
[2022-07-18] MEDS: PRENATAL VITAMINS W/ FOLIC ACID TABLET (FP) PO SCH (10:13)
[2022-07-18] MEDS: HYDROCHLOROTHIAZIDE 12.5 MG CAPSULE (FP) PO SCH (10:13)
[2022-07-18] MEDS: NICOTINE 21 MG/24 HOURS TOPICAL PATCH TD SCH (10:14)
[2022-07-18] MEDS: LIDOCAINE 5% TOPICAL PATCH TP SCH (10:14)
[2022-07-18] MEDS ORDERED: PENICILLIN G BENZATHINE 2,400,000 UNIT/4 ML PFS IM ONE (10:30)
[2022-07-18] MEDS: PANTOPRAZOLE 20 MG TABLET PO SCH (13:34)
[2022-07-18] MEDS: MELATONIN 5 MG TABLETS PO SCH (21:53)
[2022-07-18] MEDS: THIAMINE HCL 100 MG TABLET (FP) PO SCH (21:53)
[2022-07-18] MEDS: MIRTAZAPINE 15 MG TABLET (FP) PO SCH (21:54)
[2022-07-18] MEDS: PARoxetine HCL 10 MG TABLET PO SCH (21:55)
[2022-07-18] MEDS: LIDOCAINE PATCH REMOVAL MC SCH (21:56)
[2022-07-19] MEDS: GABAPENTIN 300 MG CAPSULE PO SCH ×3 (06:00→21:33)
[2022-07-19] MEDS: LIDOCAINE 5% TOPICAL PATCH TP SCH (09:39)
[2022-07-19] MEDS: FAMOTIDINE 20 MG TABLET PO SCH ×2 (09:40→21:33)
[2022-07-19] MEDS: HYDROCHLOROTHIAZIDE 12.5 MG CAPSULE (FP) PO SCH (09:40)
[2022-07-19] MEDS: NICOTINE 21 MG/24 HOURS TOPICAL PATCH TD SCH (09:40)
[2022-07-19] MEDS: PANTOPRAZOLE 20 MG TABLET PO SCH (09:40)
[2022-07-19] MEDS: PRENATAL VITAMINS W/ FOLIC ACID TABLET (FP) PO SCH (09:40)
[2022-07-19] MEDS: MELATONIN 5 MG TABLETS PO SCH (21:33)
[2022-07-19] MEDS: MIRTAZAPINE 15 MG TABLET (FP) PO SCH (21:33)
[2022-07-19] MEDS: PARoxetine HCL 10 MG TABLET PO SCH (21:33)
[2022-07-19] MEDS: THIAMINE HCL 100 MG TABLET (FP) PO SCH (21:33)
[2022-07-19] MEDS: LIDOCAINE PATCH REMOVAL MC SCH (21:34)
[2022-07-20] MEDS: hydrOXYzine PAMOATE 25 MG CAPSULE (FP) PO PRN (05:31)
[2022-07-20] MEDS: GABAPENTIN 300 MG CAPSULE PO SCH ×3 (05:31→21:18)
[2022-07-20] MEDS: HYDROCHLOROTHIAZIDE 12.5 MG CAPSULE (FP) PO SCH (11:01)
[2022-07-20] MEDS: PANTOPRAZOLE 20 MG TABLET PO SCH (11:01)
[2022-07-20] MEDS: FAMOTIDINE 20 MG TABLET PO SCH ×2 (11:01→21:18)
[2022-07-20] MEDS: LIDOCAINE 5% TOPICAL PATCH TP SCH (11:01)
[2022-07-20] MEDS: NICOTINE 21 MG/24 HOURS TOPICAL PATCH TD SCH (11:01)
[2022-07-20] MEDS: PRENATAL VITAMINS W/ FOLIC ACID TABLET (FP) PO SCH (11:01)
[2022-07-20] MEDS: MELATONIN 5 MG TABLETS PO SCH (21:17)
[2022-07-20] MEDS: LIDOCAINE PATCH REMOVAL MC SCH (21:17)
[2022-07-20] MEDS: THIAMINE HCL 100 MG TABLET (FP) PO SCH (21:17)
[2022-07-20] MEDS: PARoxetine HCL 10 MG TABLET PO SCH (21:18)
[2022-07-20] MEDS: MIRTAZAPINE 15 MG TABLET (FP) PO SCH (21:18)
[2022-07-20] MEDS: METHYL SALICYLATE/MENTHOL OINT 30 GM TUBE TP PRN (21:18)
[2022-07-21] MEDS: GABAPENTIN 300 MG CAPSULE PO SCH ×3 (06:52→21:55)
[2022-07-21] MEDS: FAMOTIDINE 20 MG TABLET PO SCH ×2 (09:52→21:56)
[2022-07-21] MEDS: PRENATAL VITAMINS W/ FOLIC ACID TABLET (FP) PO SCH (09:52)
[2022-07-21] MEDS: NICOTINE 21 MG/24 HOURS TOPICAL PATCH TD SCH (09:52)
[2022-07-21] MEDS: HYDROCHLOROTHIAZIDE 12.5 MG CAPSULE (FP) PO SCH (09:52)
[2022-07-21] MEDS: LIDOCAINE 5% TOPICAL PATCH TP SCH (09:52)
[2022-07-21] MEDS: PANTOPRAZOLE 20 MG TABLET PO SCH (09:52)
[2022-07-21] MEDS: MELATONIN 5 MG TABLETS PO SCH (21:55)
[2022-07-21] MEDS: PARoxetine HCL 10 MG TABLET PO SCH (21:55)
[2022-07-21] MEDS: MIRTAZAPINE 15 MG TABLET (FP) PO SCH (21:55)
[2022-07-21] MEDS: hydrOXYzine PAMOATE 25 MG CAPSULE (FP) PO PRN (21:55)
[2022-07-21] MEDS: LIDOCAINE PATCH REMOVAL MC SCH (21:56)
[2022-07-21] MEDS: THIAMINE HCL 100 MG TABLET (FP) PO SCH (21:56)
[2022-07-22] MEDS: GABAPENTIN 300 MG CAPSULE PO SCH ×3 (06:21→21:42)
[2022-07-22] MEDS: LIDOCAINE 5% TOPICAL PATCH TP SCH (10:10)
[2022-07-22] MEDS: FAMOTIDINE 20 MG TABLET PO SCH ×2 (10:10→21:42)
[2022-07-22] MEDS: PANTOPRAZOLE 20 MG TABLET PO SCH (10:10)
[2022-07-22] MEDS: NICOTINE 21 MG/24 HOURS TOPICAL PATCH TD SCH (10:10)
[2022-07-22] MEDS: PRENATAL VITAMINS W/ FOLIC ACID TABLET (FP) PO SCH (10:10)
[2022-07-22] MEDS: HYDROCHLOROTHIAZIDE 12.5 MG CAPSULE (FP) PO SCH (10:11)
[2022-07-22] MEDS: MIRTAZAPINE 15 MG TABLET (FP) PO SCH (21:42)
[2022-07-22] MEDS: THIAMINE HCL 100 MG TABLET (FP) PO SCH (21:42)
[2022-07-22] MEDS: PARoxetine HCL 10 MG TABLET PO SCH (21:42)
[2022-07-22] MEDS: MELATONIN 5 MG TABLETS PO SCH (21:42)
[2022-07-22] MEDS: LIDOCAINE PATCH REMOVAL MC SCH (21:43)
[2022-07-23] MEDS: GABAPENTIN 300 MG CAPSULE PO SCH ×3 (06:22→21:04)
[2022-07-23] MEDS: IBUPROFEN 600 MG TABLET (FP) PO PRN (08:42)
[2022-07-23] MEDS: FAMOTIDINE 20 MG TABLET PO SCH ×2 (09:43→21:04)
[2022-07-23] MEDS: HYDROCHLOROTHIAZIDE 12.5 MG CAPSULE (FP) PO SCH (09:43)
[2022-07-23] MEDS: LIDOCAINE 5% TOPICAL PATCH TP SCH (09:43)
[2022-07-23] MEDS: PRENATAL VITAMINS W/ FOLIC ACID TABLET (FP) PO SCH (09:43)
[2022-07-23] MEDS: PANTOPRAZOLE 20 MG TABLET PO SCH (09:43)
[2022-07-23] MEDS: NICOTINE 21 MG/24 HOURS TOPICAL PATCH TD SCH (09:43)
[2022-07-23] MEDS: LIDOCAINE PATCH REMOVAL MC SCH (21:03)
[2022-07-23] MEDS: THIAMINE HCL 100 MG TABLET (FP) PO SCH (21:03)
[2022-07-23] MEDS: MELATONIN 5 MG TABLETS PO SCH (21:03)
[2022-07-23] MEDS: PARoxetine HCL 10 MG TABLET PO SCH (21:04)
[2022-07-23] MEDS: MIRTAZAPINE 15 MG TABLET (FP) PO SCH (21:04)
[2022-07-24] MEDS: GABAPENTIN 300 MG CAPSULE PO SCH (06:10)
[2022-07-24] MEDS: IBUPROFEN 600 MG TABLET (FP) PO PRN (09:08)
[2022-07-24] MEDS: PRENATAL VITAMINS W/ FOLIC ACID TABLET (FP) PO SCH (09:08)
[2022-07-24] MEDS: PANTOPRAZOLE 20 MG TABLET PO SCH (09:09)
[2022-07-24] MEDS: NICOTINE 21 MG/24 HOURS TOPICAL PATCH TD SCH (09:09)
[2022-07-24] MEDS: LIDOCAINE 5% TOPICAL PATCH TP SCH (09:12)
[2022-07-24] MEDS: HYDROCHLOROTHIAZIDE 12.5 MG CAPSULE (FP) PO SCH (09:36)
[2022-07-24] MEDS: FAMOTIDINE 20 MG TABLET PO SCH ×2 (09:36→21:05)
[2022-07-24] MEDS: GABAPENTIN 400 MG CAPSULE PO SCH ×2 (14:24→21:05)
[2022-07-24] MEDS: BACLOFEN 10 MG TABLET (FP) PO SCH ×2 (14:24→21:05)
[2022-07-24] MEDS: THIAMINE HCL 100 MG TABLET (FP) PO SCH (21:05)
[2022-07-24] MEDS: MELATONIN 5 MG TABLETS PO SCH (21:05)
[2022-07-24] MEDS: PARoxetine HCL 10 MG TABLET PO SCH (21:05)
[2022-07-24] MEDS: LIDOCAINE PATCH REMOVAL MC SCH (21:05)
[2022-07-24] MEDS: MIRTAZAPINE 15 MG TABLET (FP) PO SCH (21:05)
[2022-07-25] MEDS: GABAPENTIN 400 MG CAPSULE PO SCH ×3 (06:25→21:10)
[2022-07-25] MEDS: BACLOFEN 10 MG TABLET (FP) PO SCH ×3 (06:25→21:11)
[2022-07-25] MEDS ORDERED: PENICILLIN G BENZATHINE 2,400,000 UNIT/4 ML PFS IM ONE (10:00)
[2022-07-25] MEDS: LIDOCAINE 5% TOPICAL PATCH TP SCH (10:02)
[2022-07-25] MEDS: PANTOPRAZOLE 20 MG TABLET PO SCH (10:03)
[2022-07-25] MEDS: HYDROCHLOROTHIAZIDE 12.5 MG CAPSULE (FP) PO SCH (10:03)
[2022-07-25] MEDS: PRENATAL VITAMINS W/ FOLIC ACID TABLET (FP) PO SCH (10:03)
[2022-07-25] MEDS: FAMOTIDINE 20 MG TABLET PO SCH ×2 (10:03→21:10)
[2022-07-25] MEDS: NICOTINE 21 MG/24 HOURS TOPICAL PATCH TD SCH (10:04)
[2022-07-25] MEDS: THIAMINE HCL 100 MG TABLET (FP) PO SCH (21:10)
[2022-07-25] MEDS: MIRTAZAPINE 15 MG TABLET (FP) PO SCH (21:10)
[2022-07-25] MEDS: MELATONIN 5 MG TABLETS PO SCH (21:10)
[2022-07-25] MEDS: PARoxetine HCL 10 MG TABLET PO SCH (21:11)
[2022-07-25] MEDS: LIDOCAINE PATCH REMOVAL MC SCH (21:11)
[2022-07-26] MEDS: GABAPENTIN 400 MG CAPSULE PO SCH ×3 (06:43→21:12)
[2022-07-26] MEDS: BACLOFEN 10 MG TABLET (FP) PO SCH ×3 (06:44→21:12)
[2022-07-26] MEDS: FAMOTIDINE 20 MG TABLET PO SCH ×2 (09:24→21:12)
[2022-07-26] MEDS: NICOTINE 21 MG/24 HOURS TOPICAL PATCH TD SCH (09:24)
[2022-07-26] MEDS: PANTOPRAZOLE 20 MG TABLET PO SCH (09:24)
[2022-07-26] MEDS: PRENATAL VITAMINS W/ FOLIC ACID TABLET (FP) PO SCH (09:25)
[2022-07-26] MEDS: LIDOCAINE 5% TOPICAL PATCH TP SCH (09:25)
[2022-07-26] MEDS: HYDROCHLOROTHIAZIDE 12.5 MG CAPSULE (FP) PO SCH (09:25)
[2022-07-26] MEDS: MELATONIN 5 MG TABLETS PO SCH (21:12)
[2022-07-26] MEDS: THIAMINE HCL 100 MG TABLET (FP) PO SCH (21:12)
[2022-07-26] MEDS: MIRTAZAPINE 15 MG TABLET (FP) PO SCH (21:12)
[2022-07-26] MEDS: LIDOCAINE PATCH REMOVAL MC SCH (21:12)
[2022-07-26] MEDS: PARoxetine HCL 10 MG TABLET PO SCH (21:13)
[2022-07-27] MEDS: GABAPENTIN 400 MG CAPSULE PO SCH ×3 (06:08→21:14)
[2022-07-27] MEDS: BACLOFEN 10 MG TABLET (FP) PO SCH ×3 (06:08→21:16)
[2022-07-27] MEDS: HYDROCHLOROTHIAZIDE 12.5 MG CAPSULE (FP) PO SCH (10:19)
[2022-07-27] MEDS: IBUPROFEN 600 MG TABLET (FP) PO PRN (10:19)
[2022-07-27] MEDS: NICOTINE 21 MG/24 HOURS TOPICAL PATCH TD SCH (10:20)
[2022-07-27] MEDS: PRENATAL VITAMINS W/ FOLIC ACID TABLET (FP) PO SCH (10:20)
[2022-07-27] MEDS: LIDOCAINE 5% TOPICAL PATCH TP SCH (10:20)
[2022-07-27] MEDS: FAMOTIDINE 20 MG TABLET PO SCH ×2 (10:20→21:14)
[2022-07-27] MEDS: PANTOPRAZOLE 20 MG TABLET PO SCH (10:20)
[2022-07-27] MEDS: THIAMINE HCL 100 MG TABLET (FP) PO SCH (21:14)
[2022-07-27] MEDS: PARoxetine HCL 10 MG TABLET PO SCH (21:14)
[2022-07-27] MEDS: LIDOCAINE PATCH REMOVAL MC SCH (21:15)
[2022-07-27] MEDS: MIRTAZAPINE 15 MG TABLET (FP) PO SCH (21:16)
[2022-07-27] MEDS: MELATONIN 5 MG TABLETS PO SCH (21:16)
[2022-07-28] MEDS: GABAPENTIN 400 MG CAPSULE PO SCH ×3 (05:59→21:35)
[2022-07-28] MEDS: BACLOFEN 10 MG TABLET (FP) PO SCH ×3 (05:59→21:36)
[2022-07-28] MEDS: PANTOPRAZOLE 20 MG TABLET PO SCH (09:29)
[2022-07-28] MEDS: PRENATAL VITAMINS W/ FOLIC ACID TABLET (FP) PO SCH (09:29)
[2022-07-28] MEDS: LIDOCAINE 5% TOPICAL PATCH TP SCH (09:29)
[2022-07-28] MEDS: FAMOTIDINE 20 MG TABLET PO SCH ×2 (09:29→21:35)
[2022-07-28] MEDS: NICOTINE 21 MG/24 HOURS TOPICAL PATCH TD SCH (09:29)
[2022-07-28] MEDS: HYDROCHLOROTHIAZIDE 12.5 MG CAPSULE (FP) PO SCH (09:29)
[2022-07-28] MEDS: THIAMINE HCL 100 MG TABLET (FP) PO SCH (21:35)
[2022-07-28] MEDS: MIRTAZAPINE 15 MG TABLET (FP) PO SCH (21:36)
[2022-07-28] MEDS: PARoxetine HCL 10 MG TABLET PO SCH (21:36)
[2022-07-28] MEDS: LIDOCAINE PATCH REMOVAL MC SCH (21:37)
[2022-07-28] MEDS: MELATONIN 5 MG TABLETS PO SCH (21:37)
[2022-07-29] MEDS: GABAPENTIN 400 MG CAPSULE PO SCH ×3 (06:23→21:05)
[2022-07-29] MEDS: BACLOFEN 10 MG TABLET (FP) PO SCH ×3 (06:23→21:05)
[2022-07-29] MEDS ORDERED: AZITHROMYCIN 250 MG TABLET PO ONE (10:16)
[2022-07-29] MEDS: PRENATAL VITAMINS W/ FOLIC ACID TABLET (FP) PO SCH (10:21)
[2022-07-29] MEDS: FAMOTIDINE 20 MG TABLET PO SCH ×2 (10:22→21:05)
[2022-07-29] MEDS: LIDOCAINE 5% TOPICAL PATCH TP SCH (10:22)
[2022-07-29] MEDS: PANTOPRAZOLE 20 MG TABLET PO SCH (10:22)
[2022-07-29] MEDS: NICOTINE 21 MG/24 HOURS TOPICAL PATCH TD SCH (10:22)
[2022-07-29] MEDS ORDERED: HYDROCHLOROTHIAZIDE 25 MG TABLET (FP) PO SCH (10:30)
[2022-07-29] MEDS: HYDROCHLOROTHIAZIDE 25 MG TABLET (FP) PO SCH (10:32)
[2022-07-29] MEDS: HYDROCHLOROTHIAZIDE 12.5 MG CAPSULE (FP) PO SCH (10:39)
[2022-07-29] MEDS: ALBUTEROL SO4 HFA INHALER IH PRN (11:01)
[2022-07-29] MEDS: MELATONIN 5 MG TABLETS PO SCH (21:05)
[2022-07-29] MEDS: MIRTAZAPINE 15 MG TABLET (FP) PO SCH (21:05)
[2022-07-29] MEDS: THIAMINE HCL 100 MG TABLET (FP) PO SCH (21:05)
[2022-07-29] MEDS: LIDOCAINE PATCH REMOVAL MC SCH (21:06)
[2022-07-29] MEDS: PARoxetine HCL 10 MG TABLET PO SCH (21:06)
[2022-07-30] MEDS: BACLOFEN 10 MG TABLET (FP) PO SCH ×3 (06:15→21:25)
[2022-07-30] MEDS: GABAPENTIN 400 MG CAPSULE PO SCH ×3 (06:16→21:24)
[2022-07-30] MEDS: LIDOCAINE 5% TOPICAL PATCH TP SCH (09:32)
[2022-07-30] MEDS: ALBUTEROL SO4 HFA INHALER IH PRN (09:32)
[2022-07-30] MEDS: NICOTINE 21 MG/24 HOURS TOPICAL PATCH TD SCH (09:33)
[2022-07-30] MEDS: PRENATAL VITAMINS W/ FOLIC ACID TABLET (FP) PO SCH (09:33)
[2022-07-30] MEDS: PANTOPRAZOLE 20 MG TABLET PO SCH (09:33)
[2022-07-30] MEDS: FAMOTIDINE 20 MG TABLET PO SCH ×2 (09:34→21:24)
[2022-07-30] MEDS: HYDROCHLOROTHIAZIDE 25 MG TABLET (FP) PO SCH (09:34)
[2022-07-30] MEDS: AZITHROMYCIN 250 MG TABLET PO SCH (09:47)
[2022-07-30 12:31] LABS: BASO % 0.2 % (0-2.0); EOS % 1.6 % (0-4.5); HEMATOCRIT 37.4 % (35.4-49); HEMOGLOBIN 12.3 GM/dL (11.7-16.9); LYMPH % 28.8 % (8-40); MCH 27.5 pg (25.7-33.7); MCHC 32.9 g/dl (32.0-35.9); MEAN CELL VOLUME 83.6 fl (80-96); MEAN PLT VOLUME 9.7 fl (7.5-11.1); MONO % 5.3 % (3.8-10.2); NEUT % 64.1 % (42.8-82.8); PLATELET COUNT 187 10^3/uL (134-434); RBC 4.47 M/mm3 (4.00-5.60); RDW 15.9 % (11.9-15.9); WHITE BLOOD COUNT 7.1 K/mm3 (4.0-10.0)
[2022-07-30 13:16] LABS: POTASSIUM 4.1 mmol/L (3.5-5.1)
[2022-07-30 13:24] LABS: CALCIUM 8.7 mg/dL (8.5-10.1); CREATININE 0.9 mg/dL (0.55-1.3); MAGNESIUM 2.1 mg/dL (1.8-2.4)
[2022-07-30 13:25] LABS: TOT PROT 6.8 g/dl (6.4-8.2)
[2022-07-30 13:26] LABS: ALBUMIN 3.2 g/dl (3.4-5.0); BLOOD UREA NITROGEN 14.5 mg/dL (7-18)
[2022-07-30 13:29] LABS: PHOSPHOROUS 3.8 mg/dL (2.5-4.9)
[2022-07-30 13:30] LABS: BILIRUBIN,TOTAL 0.5 mg/dL (0.2-1)
[2022-07-30] MEDS: MELATONIN 5 MG TABLETS PO SCH (21:24)
[2022-07-30] MEDS: THIAMINE HCL 100 MG TABLET (FP) PO SCH (21:24)
[2022-07-30] MEDS: MIRTAZAPINE 15 MG TABLET (FP) PO SCH (21:25)
[2022-07-30] MEDS: PARoxetine HCL 10 MG TABLET PO SCH (21:25)
[2022-07-30] MEDS: LIDOCAINE PATCH REMOVAL MC SCH (21:25)
[2022-07-31] MEDS: BACLOFEN 10 MG TABLET (FP) PO SCH ×3 (06:11→21:21)
[2022-07-31] MEDS: GABAPENTIN 400 MG CAPSULE PO SCH ×3 (06:11→21:21)
[2022-07-31] MEDS: PANTOPRAZOLE 20 MG TABLET PO SCH (10:16)
[2022-07-31] MEDS: FAMOTIDINE 20 MG TABLET PO SCH ×2 (10:16→21:21)
[2022-07-31] MEDS: LIDOCAINE 5% TOPICAL PATCH TP SCH (10:16)
[2022-07-31] MEDS: AZITHROMYCIN 250 MG TABLET PO SCH (10:16)
[2022-07-31] MEDS: HYDROCHLOROTHIAZIDE 25 MG TABLET (FP) PO SCH (10:16)
[2022-07-31] MEDS: PRENATAL VITAMINS W/ FOLIC ACID TABLET (FP) PO SCH (10:16)
[2022-07-31] MEDS: NICOTINE 21 MG/24 HOURS TOPICAL PATCH TD SCH (10:17)
[2022-07-31] MEDS: CHOLECALCIFEROL (VIT D3) 400 UNIT (10 MCG) TABLET PO SCH (11:46)
[2022-07-31] MEDS: ASPIRIN COATED 81 MG TABLET.EC PO SCH (11:46)
[2022-07-31] MEDS: ALBUTEROL SO4 HFA INHALER IH PRN (12:48)
[2022-07-31] MEDS: LIDOCAINE PATCH REMOVAL MC SCH (21:21)
[2022-07-31] MEDS: MELATONIN 5 MG TABLETS PO SCH (21:21)
[2022-07-31] MEDS: THIAMINE HCL 100 MG TABLET (FP) PO SCH (21:21)
[2022-07-31] MEDS: PARoxetine HCL 10 MG TABLET PO SCH (21:22)
[2022-07-31] MEDS: MIRTAZAPINE 15 MG TABLET (FP) PO SCH (21:22)
[2022-08-01] MEDS: BACLOFEN 10 MG TABLET (FP) PO SCH ×3 (06:18→21:10)
[2022-08-01] MEDS: GABAPENTIN 400 MG CAPSULE PO SCH ×3 (06:18→21:10)
[2022-08-01] MEDS: ASPIRIN COATED 81 MG TABLET.EC PO SCH (09:18)
[2022-08-01] MEDS: NICOTINE 21 MG/24 HOURS TOPICAL PATCH TD SCH (09:19)
[2022-08-01] MEDS: HYDROCHLOROTHIAZIDE 25 MG TABLET (FP) PO SCH (09:19)
[2022-08-01] MEDS: PRENATAL VITAMINS W/ FOLIC ACID TABLET (FP) PO SCH (09:19)
[2022-08-01] MEDS: PANTOPRAZOLE 20 MG TABLET PO SCH (09:19)
[2022-08-01] MEDS: FAMOTIDINE 20 MG TABLET PO SCH ×2 (09:19→21:10)
[2022-08-01] MEDS: CHOLECALCIFEROL (VIT D3) 400 UNIT (10 MCG) TABLET PO SCH (09:20)
[2022-08-01] MEDS: LIDOCAINE 5% TOPICAL PATCH TP SCH (09:20)
[2022-08-01] MEDS ORDERED: PENICILLIN G BENZATHINE 2,400,000 UNIT/4 ML PFS IM ONE (10:00)
[2022-08-01] MEDS: AZITHROMYCIN 250 MG TABLET PO SCH (10:44)
[2022-08-01] MEDS: LIDOCAINE PATCH REMOVAL MC SCH (21:10)
[2022-08-01] MEDS: THIAMINE HCL 100 MG TABLET (FP) PO SCH (21:10)
[2022-08-01] MEDS: MELATONIN 5 MG TABLETS PO SCH (21:10)
[2022-08-01] MEDS: MIRTAZAPINE 15 MG TABLET (FP) PO SCH (21:10)
[2022-08-01] MEDS: PARoxetine HCL 10 MG TABLET PO SCH (21:11)
[2022-08-02] MEDS: ALBUTEROL SO4 HFA INHALER IH PRN (03:30)
[2022-08-02] MEDS: BACLOFEN 10 MG TABLET (FP) PO SCH ×3 (06:03→21:21)
[2022-08-02] MEDS: GABAPENTIN 400 MG CAPSULE PO SCH ×3 (06:03→21:21)
[2022-08-02] MEDS: LIDOCAINE 5% TOPICAL PATCH TP SCH (09:22)
[2022-08-02] MEDS: HYDROCHLOROTHIAZIDE 25 MG TABLET (FP) PO SCH (09:22)
[2022-08-02] MEDS: ASPIRIN COATED 81 MG TABLET.EC PO SCH (09:22)
[2022-08-02] MEDS: NICOTINE 21 MG/24 HOURS TOPICAL PATCH TD SCH (09:22)
[2022-08-02] MEDS: PANTOPRAZOLE 20 MG TABLET PO SCH (09:23)
[2022-08-02] MEDS: FAMOTIDINE 20 MG TABLET PO SCH ×2 (09:23→21:21)
[2022-08-02] MEDS: PRENATAL VITAMINS W/ FOLIC ACID TABLET (FP) PO SCH (09:23)
[2022-08-02] MEDS: CHOLECALCIFEROL (VIT D3) 400 UNIT (10 MCG) TABLET PO SCH (09:23)
[2022-08-02] MEDS: AZITHROMYCIN 250 MG TABLET PO SCH (09:24)
[2022-08-02] MEDS: PARoxetine HCL 10 MG TABLET PO SCH (21:21)
[2022-08-02] MEDS: MIRTAZAPINE 15 MG TABLET (FP) PO SCH (21:21)
[2022-08-02] MEDS: LIDOCAINE PATCH REMOVAL MC SCH (21:21)
[2022-08-02] MEDS: MELATONIN 5 MG TABLETS PO SCH (21:21)
[2022-08-02] MEDS: THIAMINE HCL 100 MG TABLET (FP) PO SCH (21:21)
[2022-08-03] MEDS: ALBUTEROL SO4 HFA INHALER IH PRN (03:30)
[2022-08-03] MEDS: BACLOFEN 10 MG TABLET (FP) PO SCH ×3 (06:11→21:18)
[2022-08-03] MEDS: GABAPENTIN 400 MG CAPSULE PO SCH ×3 (06:11→21:18)
[2022-08-03] MEDS: LIDOCAINE 5% TOPICAL PATCH TP SCH (09:43)
[2022-08-03] MEDS: ASPIRIN COATED 81 MG TABLET.EC PO SCH (09:43)
[2022-08-03] MEDS: NICOTINE 21 MG/24 HOURS TOPICAL PATCH TD SCH (09:43)
[2022-08-03] MEDS: HYDROCHLOROTHIAZIDE 25 MG TABLET (FP) PO SCH (09:43)
[2022-08-03] MEDS: FAMOTIDINE 20 MG TABLET PO SCH ×2 (09:43→21:19)
[2022-08-03] MEDS: PRENATAL VITAMINS W/ FOLIC ACID TABLET (FP) PO SCH (09:44)
[2022-08-03] MEDS: AZITHROMYCIN 250 MG TABLET PO SCH (09:44)
[2022-08-03] MEDS: PANTOPRAZOLE 20 MG TABLET PO SCH (09:44)
[2022-08-03] MEDS: CHOLECALCIFEROL (VIT D3) 400 UNIT (10 MCG) TABLET PO SCH (09:45)
[2022-08-03] MEDS ORDERED: SODIUM CHLORIDE NASAL SPRAY 44 ML BOTTLE NS PRN (13:47)
[2022-08-03] MEDS: MIRTAZAPINE 15 MG TABLET (FP) PO SCH (21:18)
[2022-08-03] MEDS: MELATONIN 5 MG TABLETS PO SCH (21:18)
[2022-08-03] MEDS: THIAMINE HCL 100 MG TABLET (FP) PO SCH (21:18)
[2022-08-03] MEDS: LIDOCAINE PATCH REMOVAL MC SCH (21:19)
[2022-08-03] MEDS: PARoxetine HCL 10 MG TABLET PO SCH (21:19)
[2022-08-04] MEDS: ALBUTEROL SO4 HFA INHALER IH PRN ×2 (04:00→09:41)
[2022-08-04] MEDS: GABAPENTIN 400 MG CAPSULE PO SCH ×3 (06:17→21:06)
[2022-08-04] MEDS: BACLOFEN 10 MG TABLET (FP) PO SCH ×3 (07:55→21:06)
[2022-08-04] MEDS: ASPIRIN COATED 81 MG TABLET.EC PO SCH (09:37)
[2022-08-04] MEDS: HYDROCHLOROTHIAZIDE 25 MG TABLET (FP) PO SCH (09:37)
[2022-08-04] MEDS: CHOLECALCIFEROL (VIT D3) 400 UNIT (10 MCG) TABLET PO SCH (09:37)
[2022-08-04] MEDS: NICOTINE 21 MG/24 HOURS TOPICAL PATCH TD SCH (09:37)
[2022-08-04] MEDS: PANTOPRAZOLE 20 MG TABLET PO SCH (09:37)
[2022-08-04] MEDS: FAMOTIDINE 20 MG TABLET PO SCH ×2 (09:37→21:06)
[2022-08-04] MEDS: LIDOCAINE 5% TOPICAL PATCH TP SCH (09:38)
[2022-08-04] MEDS: PRENATAL VITAMINS W/ FOLIC ACID TABLET (FP) PO SCH (09:39)
[2022-08-04] MEDS: MELATONIN 5 MG TABLETS PO SCH (21:06)
[2022-08-04] MEDS: MIRTAZAPINE 15 MG TABLET (FP) PO SCH (21:06)
[2022-08-04] MEDS: LIDOCAINE PATCH REMOVAL MC SCH (21:06)
[2022-08-04] MEDS: THIAMINE HCL 100 MG TABLET (FP) PO SCH (21:06)
[2022-08-04] MEDS: PARoxetine HCL 10 MG TABLET PO SCH (21:07)
[2022-08-05] MEDS: BACLOFEN 10 MG TABLET (FP) PO SCH ×3 (06:06→21:36)
[2022-08-05] MEDS: GABAPENTIN 400 MG CAPSULE PO SCH ×3 (06:06→21:36)
[2022-08-05] MEDS: FAMOTIDINE 20 MG TABLET PO SCH ×2 (09:08→21:36)
[2022-08-05] MEDS: ASPIRIN COATED 81 MG TABLET.EC PO SCH (09:08)
[2022-08-05] MEDS: HYDROCHLOROTHIAZIDE 25 MG TABLET (FP) PO SCH (09:08)
[2022-08-05] MEDS: IBUPROFEN 600 MG TABLET (FP) PO PRN (09:08)
[2022-08-05] MEDS: PANTOPRAZOLE 20 MG TABLET PO SCH (09:08)
[2022-08-05] MEDS: CHOLECALCIFEROL (VIT D3) 400 UNIT (10 MCG) TABLET PO SCH (09:09)
[2022-08-05] MEDS: NICOTINE 21 MG/24 HOURS TOPICAL PATCH TD SCH (09:10)
[2022-08-05] MEDS: PRENATAL VITAMINS W/ FOLIC ACID TABLET (FP) PO SCH (09:10)
[2022-08-05] MEDS: LIDOCAINE 5% TOPICAL PATCH TP SCH (09:10)
[2022-08-05] MEDS: ALBUTEROL SO4 HFA INHALER IH PRN (14:32)
[2022-08-05] MEDS: THIAMINE HCL 100 MG TABLET (FP) PO SCH (21:36)
[2022-08-05] MEDS: MIRTAZAPINE 15 MG TABLET (FP) PO SCH (21:36)
[2022-08-05] MEDS: PARoxetine HCL 10 MG TABLET PO SCH (21:37)
[2022-08-05] MEDS: LIDOCAINE PATCH REMOVAL MC SCH (21:38)
[2022-08-05] MEDS: MELATONIN 5 MG TABLETS PO SCH (22:19)
[2022-08-06] MEDS: ALBUTEROL SO4 HFA INHALER IH PRN (01:25)
[2022-08-06] MEDS: BACLOFEN 10 MG TABLET (FP) PO SCH ×3 (06:23→21:15)
[2022-08-06] MEDS: GABAPENTIN 400 MG CAPSULE PO SCH ×3 (06:23→21:16)
[2022-08-06] MEDS: HYDROCHLOROTHIAZIDE 25 MG TABLET (FP) PO SCH (09:28)
[2022-08-06] MEDS: PANTOPRAZOLE 20 MG TABLET PO SCH (09:28)
[2022-08-06] MEDS: FAMOTIDINE 20 MG TABLET PO SCH ×2 (09:28→21:16)
[2022-08-06] MEDS: LIDOCAINE 5% TOPICAL PATCH TP SCH (09:28)
[2022-08-06] MEDS: ASPIRIN COATED 81 MG TABLET.EC PO SCH (09:28)
[2022-08-06] MEDS: PRENATAL VITAMINS W/ FOLIC ACID TABLET (FP) PO SCH (09:28)
[2022-08-06] MEDS: CHOLECALCIFEROL (VIT D3) 400 UNIT (10 MCG) TABLET PO SCH (09:29)
[2022-08-06] MEDS: NICOTINE 21 MG/24 HOURS TOPICAL PATCH TD SCH (09:32)
[2022-08-06] MEDS: MELATONIN 5 MG TABLETS PO SCH (21:15)
[2022-08-06] MEDS: THIAMINE HCL 100 MG TABLET (FP) PO SCH (21:15)
[2022-08-06] MEDS: PARoxetine HCL 10 MG TABLET PO SCH (21:16)
[2022-08-06] MEDS: LIDOCAINE PATCH REMOVAL MC SCH (21:16)
[2022-08-06] MEDS: MIRTAZAPINE 15 MG TABLET (FP) PO SCH (21:16)
[2022-08-07] MEDS: ALBUTEROL SO4 HFA INHALER IH PRN ×2 (00:29→15:23)
[2022-08-07] MEDS: GABAPENTIN 400 MG CAPSULE PO SCH ×3 (06:12→21:18)
[2022-08-07] MEDS: BACLOFEN 10 MG TABLET (FP) PO SCH ×3 (06:12→21:18)
[2022-08-07] MEDS: LIDOCAINE 5% TOPICAL PATCH TP SCH (10:11)
[2022-08-07] MEDS: NICOTINE 21 MG/24 HOURS TOPICAL PATCH TD SCH (10:12)
[2022-08-07] MEDS: ASPIRIN COATED 81 MG TABLET.EC PO SCH (10:12)
[2022-08-07] MEDS: PRENATAL VITAMINS W/ FOLIC ACID TABLET (FP) PO SCH (10:12)
[2022-08-07] MEDS: HYDROCHLOROTHIAZIDE 25 MG TABLET (FP) PO SCH (10:13)
[2022-08-07] MEDS: FAMOTIDINE 20 MG TABLET PO SCH ×2 (10:13→21:18)
[2022-08-07] MEDS: PANTOPRAZOLE 20 MG TABLET PO SCH (10:14)
[2022-08-07] MEDS: CHOLECALCIFEROL (VIT D3) 400 UNIT (10 MCG) TABLET PO SCH (10:15)
[2022-08-07] MEDS: THIAMINE HCL 100 MG TABLET (FP) PO SCH (21:18)
[2022-08-07] MEDS: MELATONIN 5 MG TABLETS PO SCH (21:18)
[2022-08-07] MEDS: LIDOCAINE PATCH REMOVAL MC SCH (21:18)
[2022-08-07] MEDS: MIRTAZAPINE 15 MG TABLET (FP) PO SCH (21:18)
[2022-08-07] MEDS: PARoxetine HCL 10 MG TABLET PO SCH (21:19)
[2022-08-08] MEDS: ALBUTEROL SO4 HFA INHALER IH PRN (04:11)
[2022-08-08] MEDS: GABAPENTIN 400 MG CAPSULE PO SCH ×3 (06:07→21:18)
[2022-08-08] MEDS: BACLOFEN 10 MG TABLET (FP) PO SCH ×3 (06:07→21:18)
[2022-08-08] MEDS: FAMOTIDINE 20 MG TABLET PO SCH ×2 (09:04→21:18)
[2022-08-08] MEDS: ASPIRIN COATED 81 MG TABLET.EC PO SCH (09:04)
[2022-08-08] MEDS: LIDOCAINE 5% TOPICAL PATCH TP SCH (09:04)
[2022-08-08] MEDS: NICOTINE 21 MG/24 HOURS TOPICAL PATCH TD SCH (09:04)
[2022-08-08] MEDS: PANTOPRAZOLE 20 MG TABLET PO SCH (09:04)
[2022-08-08] MEDS: HYDROCHLOROTHIAZIDE 25 MG TABLET (FP) PO SCH (09:04)
[2022-08-08] MEDS: CHOLECALCIFEROL (VIT D3) 400 UNIT (10 MCG) TABLET PO SCH (09:04)
[2022-08-08] MEDS: PRENATAL VITAMINS W/ FOLIC ACID TABLET (FP) PO SCH (09:04)
[2022-08-08] MEDS: PARoxetine HCL 10 MG TABLET PO SCH (21:18)
[2022-08-08] MEDS: MELATONIN 5 MG TABLETS PO SCH (21:18)
[2022-08-08] MEDS: THIAMINE HCL 100 MG TABLET (FP) PO SCH (21:18)
[2022-08-08] MEDS: LIDOCAINE PATCH REMOVAL MC SCH (21:18)
[2022-08-08] MEDS: MIRTAZAPINE 30 MG TABLET PO SCH (21:19)
[2022-08-09] MEDS: GABAPENTIN 400 MG CAPSULE PO SCH ×3 (06:14→21:04)
[2022-08-09] MEDS: BACLOFEN 10 MG TABLET (FP) PO SCH ×3 (06:14→21:04)
[2022-08-09] MEDS: PANTOPRAZOLE 20 MG TABLET PO SCH (09:28)
[2022-08-09] MEDS: HYDROCHLOROTHIAZIDE 25 MG TABLET (FP) PO SCH (09:28)
[2022-08-09] MEDS: FAMOTIDINE 20 MG TABLET PO SCH ×2 (09:28→21:04)
[2022-08-09] MEDS: NICOTINE 21 MG/24 HOURS TOPICAL PATCH TD SCH (09:28)
[2022-08-09] MEDS: ASPIRIN COATED 81 MG TABLET.EC PO SCH (09:28)
[2022-08-09] MEDS: PRENATAL VITAMINS W/ FOLIC ACID TABLET (FP) PO SCH (09:28)
[2022-08-09] MEDS: LIDOCAINE 5% TOPICAL PATCH TP SCH (09:28)
[2022-08-09] MEDS: CHOLECALCIFEROL (VIT D3) 400 UNIT (10 MCG) TABLET PO SCH (09:28)
[2022-08-09] MEDS ORDERED: MIRTAZAPINE 15 MG TABLET (FP) ONE (18:27)
[2022-08-09] MEDS: ALBUTEROL SO4 HFA INHALER IH PRN (21:02)
[2022-08-09] MEDS: THIAMINE HCL 100 MG TABLET (FP) PO SCH (21:04)
[2022-08-09] MEDS: PARoxetine HCL 10 MG TABLET PO SCH (21:04)
[2022-08-09] MEDS: MELATONIN 5 MG TABLETS PO SCH (21:04)
[2022-08-09] MEDS: MIRTAZAPINE 30 MG TABLET PO SCH (21:05)
[2022-08-09] MEDS: LIDOCAINE PATCH REMOVAL MC SCH (21:06)
[2022-08-10] MEDS: BACLOFEN 10 MG TABLET (FP) PO SCH ×3 (06:05→21:03)
[2022-08-10] MEDS: GABAPENTIN 400 MG CAPSULE PO SCH ×3 (06:05→21:03)
[2022-08-10 09:12] VITALS: RESP 18
[2022-08-10] MEDS: ASPIRIN COATED 81 MG TABLET.EC PO SCH (09:13)
[2022-08-10] MEDS: ALBUTEROL SO4 HFA INHALER IH PRN (09:13)
[2022-08-10] MEDS: PRENATAL VITAMINS W/ FOLIC ACID TABLET (FP) PO SCH (09:13)
[2022-08-10] MEDS: FAMOTIDINE 20 MG TABLET PO SCH ×2 (09:14→21:03)
[2022-08-10] MEDS: HYDROCHLOROTHIAZIDE 25 MG TABLET (FP) PO SCH (09:14)
[2022-08-10] MEDS: PANTOPRAZOLE 20 MG TABLET PO SCH (09:14)
[2022-08-10] MEDS: CHOLECALCIFEROL (VIT D3) 400 UNIT (10 MCG) TABLET PO SCH (09:14)
[2022-08-10] MEDS: LIDOCAINE 5% TOPICAL PATCH TP SCH (09:14)
[2022-08-10] MEDS: NICOTINE 21 MG/24 HOURS TOPICAL PATCH TD SCH (09:16)
[2022-08-10] MEDS: FLUTICASONE/UMECLIDIN/VILANTER(100-62.5-25 TRELEGY ELLIPTA) INAHLER IH SCH (13:30)
[2022-08-10] MEDS ORDERED: MIRTAZAPINE 15 MG TABLET (FP) ONE (18:37)
[2022-08-10] MEDS: THIAMINE HCL 100 MG TABLET (FP) PO SCH (21:03)
[2022-08-10] MEDS: PARoxetine HCL 10 MG TABLET PO SCH (21:03)
[2022-08-10] MEDS: MIRTAZAPINE 30 MG TABLET PO SCH (21:03)
[2022-08-10] MEDS: MELATONIN 5 MG TABLETS PO SCH (21:04)
[2022-08-10] MEDS: LIDOCAINE PATCH REMOVAL MC SCH (21:04)
[2022-08-11] MEDS: ALBUTEROL SO4 HFA INHALER IH PRN (03:00)
[2022-08-11] MEDS: BACLOFEN 10 MG TABLET (FP) PO SCH (06:23)
[2022-08-11] MEDS: GABAPENTIN 400 MG CAPSULE PO SCH (06:23)
[2022-08-11 07:10] VITALS: TEMP 97.3
[2022-08-11 09:02] VITALS: BP 120/87; PULSE 81
[2022-08-11] MEDS: PANTOPRAZOLE 20 MG TABLET PO SCH (09:02)
[2022-08-11] MEDS: HYDROCHLOROTHIAZIDE 25 MG TABLET (FP) PO SCH (09:02)
[2022-08-11] MEDS: ASPIRIN COATED 81 MG TABLET.EC PO SCH (09:02)
[2022-08-11] MEDS: PRENATAL VITAMINS W/ FOLIC ACID TABLET (FP) PO SCH (09:02)
[2022-08-11] MEDS: NICOTINE 21 MG/24 HOURS TOPICAL PATCH TD SCH (09:03)
[2022-08-11] MEDS: CHOLECALCIFEROL (VIT D3) 400 UNIT (10 MCG) TABLET PO SCH (09:03)
[2022-08-11] MEDS: FLUTICASONE/UMECLIDIN/VILANTER(100-62.5-25 TRELEGY ELLIPTA) INAHLER IH SCH (09:03)
[2022-08-11] MEDS: FAMOTIDINE 20 MG TABLET PO SCH (09:03)
[2022-08-11] MEDS: LIDOCAINE 5% TOPICAL PATCH TP SCH (09:03)
== END 2022-08-11 09:11 | disposition home or self-care (01) | DRG 772 ==
LOC: EDSEX → YASAS 10:04 → EDSEX 10:04 → Y3W 16:48 → Y3E 07-23 10:24
PROVIDERS: ADMIT Allergy & Immunology; ATTEND Psychiatry & Neurology Pain Medicine
PROC: HZ42ZZZ Group Counseling for Substance Abuse Treatment, Cognitive-Behavioral (ICD-10-PCS; principal; 2022-07-16)
DX: F11.20 Opioid dependence, uncomplicated (principal); F14.20 Cocaine dependence, uncomplicated; F17.210 Nicotine dependence, cigarettes, uncomplicated; F19.20 Other psychoactive substance dependence, uncomplicated; F19.282 Other psychoactive substance dependence with psychoactive substance-induced sleep disorder; F19.24 Other psychoactive substance dependence with psychoactive substance-induced mood disorder; I10 Essential (primary) hypertension; K21.9 Gastro-esophageal reflux disease without esophagitis; J45.901 Unspecified asthma with (acute) exacerbation; J44.9 Chronic obstructive pulmonary disease, unspecified; M71.21 Synovial cyst of popliteal space [Baker], right knee; M54.50 Low back pain, unspecified; G89.29 Other chronic pain; R76.8 Other specified abnormal immunological findings in serum; Z62.810 Personal history of physical and sexual abuse in childhood; Z99.89 Dependence on other enabling machines and devices; Z59.01 Sheltered homelessness
CPT/HCPCS: 36415; 71046-TC-FY; 73562-TC-RT-FY; 80053; 80061; 81003; 82306; 83735; 84100; 85025; 85027; 86593; 86780; 86803; 93005; 93010; C9803-CS; J0475; U0003; U0005

== ENCOUNTER 2024-01-08 14:13 | Inpatient (IN) | payer OTHER ==
[2024-01-08 14:45] VITALS: BMI 25.7
[2024-01-08] MEDS ORDERED: BENZONATATE 200 MG CAPSULE PO PRN (15:22)
[2024-01-08] MEDS ORDERED: LOPERAMIDE HCL 2 MG CAPSULE PO PRN (15:22)
[2024-01-08] MEDS ORDERED: NALOXONE (NYS OPIOID OVERDOSE PROGRAM) 4 MG/0.1 ML SPRAY NS PRN (15:22)
[2024-01-08] MEDS ORDERED: NALOXONE (NARCAN) HCL 4 MG/0.1 ML SPRAY NS PRN (15:22)
[2024-01-08] MEDS ORDERED: POLYETHYLENE GLYCOL (HEALTHYLAX) 3350 17 GM PACKET PO PRN (15:22)
[2024-01-08] MEDS ORDERED: BENZOCAINE/MENTHOL (CHLORASEPTIC ) LOZENGE MM PRN (15:22)
[2024-01-08] MEDS ORDERED: guaiFENesin 600 MG TABLET.ER (FP) PO PRN (15:22)
[2024-01-08] MEDS ORDERED: MAGNESIUM HYDROX 2400MG/30ML ORAL SUSPENSION 30 ML CUP PO PRN (15:22)
[2024-01-08] MEDS ORDERED: PRENATAL VITAMINS W/ FOLIC ACID TABLET (FP) PO ONE (16:19)
[2024-01-08] MEDS ORDERED: INSULIN (NOVOLOG) ASPART 100 UNITS/ML 10ML VIAL ONE (16:19)
[2024-01-08] MEDS: INSULIN ASPART SLIDING SCALE (NOVOLOG) 1 VIAL SQ SCH (16:23)
[2024-01-08] MEDS: PRENATAL VITAMINS W/ FOLIC ACID TABLET (FP) PO SCH (16:23)
[2024-01-08] MEDS ORDERED: INSULIN ASPART SLIDING SCALE (NOVOLOG) 1 VIAL SQ SCH (16:30)
[2024-01-08] MEDS ORDERED: TUBERCULIN PPD 5 TU/0.1ML VIAL ID ONE (18:17)
[2024-01-08] MEDS: hydrOXYzine PAMOATE 25 MG CAPSULE (FP) PO PRN (18:21)
[2024-01-08] MEDS: IBUPROFEN 600 MG TABLET (FP) PO PRN (18:21)
[2024-01-08] MEDS: MELATONIN 5 MG TABLETS PO SCH (21:55)
[2024-01-08] MEDS: THIAMINE 100 MG TABLET PO SCH (21:55)
[2024-01-09] MEDS: methaDONE HCL 10 MG TABLET PO SCH (10:00)
[2024-01-09] MEDS: methaDONE HCL 40 MG DISPERSABLE TABLET PO SCH (10:00)
[2024-01-09 12:06] LABS: HEMATOCRIT 37.1 % (35.4-49); MCH 27.1 pg (25.7-33.7); MCHC 32.5 g/dl (32.0-35.9); MEAN CELL VOLUME 83.4 fl (80-96); MEAN PLT VOLUME 10.6 fl (7.5-11.1); PLATELET COUNT 146 10^3/uL (134-434); RBC 4.45 M/mm3 (4.00-5.60); RDW 15.6 % (11.9-15.9); WHITE BLOOD COUNT 6.6 K/mm3 (4.0-10.0)
[2024-01-09 12:28] LABS: CHLORIDE 108 mmol/L (98-107); POTASSIUM 3.7 mmol/L (3.5-5.1); SODIUM 143 mmol/L (136-145)
[2024-01-09 12:38] LABS: ALBUMIN 2.9 g/dl (3.4-5.0); ANION GAP 4 mmol/L (4-13); BLOOD UREA NITROGEN 16.8 mg/dL (7-18); CALCIUM 8.8 mg/dL (8.5-10.1); CO2 30 mmol/L (21-32); GLUCOSE,RANDOM 125 mg/dL (74-106)
[2024-01-09 12:40] LABS: SGOT/AST 12 U/L (15-37); SGPT/ALT 15 U/L (13-61)
[2024-01-09 12:41] LABS: BILIRUBIN,TOTAL 0.2 mg/dL (0.2-1); CREATININE 0.7 mg/dL (0.55-1.3); TOT PROT 5.6 g/dl (6.4-8.2)
[2024-01-09 12:43] LABS: ALK PHOS 87 U/L (45-117)
[2024-01-09 13:15] LABS: SYPHILIS W/ RPR CONF REACTIVE (NONREACTIVE)
[2024-01-09] MEDS: FLU VACCINE (FLULAVAL) PF 45 MCG/0.5 ML SYRINGE 2024-2025 IM ONE (13:26)
[2024-01-09 15:52] LABS: EPI CELLS 14 /uL (0-25.1); HYALINE CASTS 0 /uL (0-3.1); URINE APPEARANCE CLEAR; URINE BACTERIA 51 /uL (0-1359); URINE BILIRUBIN NEGATIVE (NEGATIVE); URINE COLOR YELLOW; URINE GLUCOSE (UA) NEGATIVE (NEGATIVE); URINE KETONE TRACE (NEGATIVE); URINE LEUK ESTERASE TRACE (NEGATIVE); URINE NITRITE NEGATIVE (NEGATIVE); URINE PROTEIN NEGATIVE (NEGATIVE); URINE RBC 5 /uL (0-23.9); URINE WBC 35 /uL (0-25.8)
[2024-01-09] MEDS ORDERED: INSULIN (NOVOLOG) ASPART 100 UNITS/ML 10ML VIAL ONE (16:46)
[2024-01-09] MEDS: MIRTAZAPINE 15 MG TABLET (FP) PO SCH (21:31)
[2024-01-10] MEDS: IBUPROFEN 400 MG TABLET (FP) PO PRN (06:45)
[2024-01-10] MEDS: PARoxetine HCL 10 MG TABLET PO SCH (10:50)
[2024-01-11] MEDS ORDERED: LACTULOSE 20 GM/30 ML UDC (FOR ORAL USE ONLY) PO PRN (13:07)
[2024-01-11] MEDS: PANTOPRAZOLE 20 MG TABLET PO SCH (14:30)
[2024-01-11] MEDS: BACLOFEN 10 MG TABLET (FP) PO SCH (14:30)
[2024-01-11] MEDS: VITAMINS A AND D TOPICAL OINTMENT TP SCH (17:07)
[2024-01-11] MEDS: TOLNAFTATE 1% CREAM 15 GM TUBE TP SCH (22:12)
[2024-01-12] MEDS ORDERED: INSULIN (NOVOLOG) ASPART 100 UNITS/ML 10ML VIAL ONE ×2 (06:18→11:28)
[2024-01-12] MEDS: MAG HYDROX/AL HYDROX/SIMETH 30 ML UNIT-DOSE CUP PO PRN (06:19)
[2024-01-13] MEDS: PANTOPRAZOLE 20 MG TABLET PO SCH (06:18)
[2024-01-13] MEDS ORDERED: INSULIN (NOVOLOG) ASPART 100 UNITS/ML 10ML VIAL ONE ×3 (06:19→21:45)
[2024-01-14] MEDS ORDERED: INSULIN (NOVOLOG) ASPART 100 UNITS/ML 10ML VIAL ONE ×2 (06:25→16:59)
[2024-01-14] MEDS: ACETAMINOPHEN 325 MG TABLET (FP) PO PRN (09:55)
[2024-01-14] MEDS: FUROSEMIDE 20 MG TABLET (FP) PO SCH (09:55)
[2024-01-14] MEDS: INSULIN ASPART SLIDING SCALE (NOVOLOG) 1 VIAL SQ SCH (11:00)
[2024-01-15] MEDS: HYDROCHLOROTHIAZIDE 12.5 MG CAPSULE (FP) PO SCH (13:59)
[2024-01-15] MEDS: AMOX TR/POT CLAV 500MG/125MG TABLETS (FP) PO SCH (17:41)
[2024-01-15] MEDS: BENZOCAINE 20 % GEL TUBE MM PRN (21:17)
[2024-01-16] MEDS ORDERED: methaDONE HCL 10 MG TABLET PO SCH (06:45)
[2024-01-16] MEDS: ALBUTEROL SO4 HFA INHALER IH PRN (15:07)
[2024-01-16] MEDS ORDERED: INSULIN (NOVOLOG) ASPART 100 UNITS/ML 10ML VIAL ONE (17:22)
[2024-01-17] MEDS ORDERED: INSULIN (NOVOLOG) ASPART 100 UNITS/ML 10ML VIAL ONE (22:05)
[2024-01-18] MEDS ORDERED: INSULIN (NOVOLOG) ASPART 100 UNITS/ML 10ML VIAL ONE (07:25)
[2024-01-18] MEDS ORDERED: NICOTINE POLACRILEX 4 MG GUM BUC PRN (08:13)
[2024-01-18] MEDS ORDERED: NICOTINE POLACRILEX 4 MG LOZENGE BC PRN (08:13)
[2024-01-18] MEDS: NICOTINE 21 MG/24 HOURS TOPICAL PATCH TD SCH (10:32)
[2024-01-19] MEDS ORDERED: INSULIN (NOVOLOG) ASPART 100 UNITS/ML 10ML VIAL ONE ×2 (06:17→16:42)
[2024-01-21] MEDS ORDERED: INSULIN (NOVOLOG) ASPART 100 UNITS/ML 10ML VIAL ONE (16:27)
[2024-01-22] MEDS: HYDROCHLOROTHIAZIDE 25 MG TABLET (FP) PO SCH (10:17)
[2024-01-22] MEDS ORDERED: INSULIN (NOVOLOG) ASPART 100 UNITS/ML 10ML VIAL ONE (16:28)
[2024-01-24 09:45] VITALS: PULSE 68
[2024-01-25 07:03] VITALS: BP 121/71; RESP 17; TEMP 97.7
[2024-01-25] MEDS: NALOXONE (NYS OPIOID OVERDOSE PROGRAM) 4 MG/0.1 ML SPRAY NS SCH (09:01)
== END 2024-01-25 09:30 | disposition home or self-care (01) | DRG 772 ==
LOC: YASAS 14:13 → Y3E 15:57
PROVIDERS: ADMIT Allergy & Immunology; ATTEND Psychiatry & Neurology Pain Medicine
PROC: HZ42ZZZ Group Counseling for Substance Abuse Treatment, Cognitive-Behavioral (ICD-10-PCS; principal; 2024-01-08)
DX: F11.20 Opioid dependence, uncomplicated (principal); F14.20 Cocaine dependence, uncomplicated; F12.20 Cannabis dependence, uncomplicated; F17.210 Nicotine dependence, cigarettes, uncomplicated; F19.282 Other psychoactive substance dependence with psychoactive substance-induced sleep disorder; F19.24 Other psychoactive substance dependence with psychoactive substance-induced mood disorder; F10.280 Alcohol dependence with alcohol-induced anxiety disorder; F32.A Depression, unspecified; F41.9 Anxiety disorder, unspecified; B35.3 Tinea pedis; I10 Essential (primary) hypertension; K21.9 Gastro-esophageal reflux disease without esophagitis; E11.9 Type 2 diabetes mellitus without complications; Z79.84 Long term (current) use of oral hypoglycemic drugs; M54.50 Low back pain, unspecified; G89.29 Other chronic pain; R60.0 Localized edema; Z62.810 Personal history of physical and sexual abuse in childhood; Z59.02 Unsheltered homelessness; Z99.89 Dependence on other enabling machines and devices
CPT/HCPCS: 36415; 80053; 80305; 80307; 81003; 82962; 85027; 86593; 86780; 86803; 87811; 93005; 93010; J0475

== ENCOUNTER 2024-09-13 10:23 | Inpatient (IN) | payer OTHER ==
[2024-09-13 10:43] VITALS: BMI 23.6
[2024-09-13] MEDS ORDERED: NALOXONE (NARCAN) HCL 4 MG/0.1 ML SPRAY NS PRN (10:58)
[2024-09-13] MEDS ORDERED: BISMUTH SUBSALICYLATE 262 MG/15 ML BTL PO PRN (10:58)
[2024-09-13] MEDS ORDERED: guaiFENesin 600 MG TABLET.ER (FP) PO PRN (10:58)
[2024-09-13] MEDS ORDERED: BENZOCAINE/MENTHOL (CHLORASEPTIC ) LOZENGE MM PRN (10:58)
[2024-09-13] MEDS ORDERED: ACETAMINOPHEN 325 MG TABLET (FP) PO PRN (10:58)
[2024-09-13] MEDS ORDERED: ONDANSETRON *ODT* 4 MG TABLET SL PRN (10:58)
[2024-09-13] MEDS ORDERED: MAG HYDROX/AL HYDROX/SIMETH 30 ML UNIT-DOSE CUP PO PRN (10:58)
[2024-09-13] MEDS ORDERED: MAGNESIUM HYDROX 2400MG/30ML ORAL SUSPENSION 30 ML CUP PO PRN (10:58)
[2024-09-13] MEDS ORDERED: IBUPROFEN 600 MG TABLET (FP) PO PRN (10:58)
[2024-09-13] MEDS ORDERED: METHOCARBAMOL 500 MG TABLET PO PRN (10:58)
[2024-09-13] MEDS ORDERED: IBUPROFEN 400 MG TABLET (FP) PO PRN (10:58)
[2024-09-13] MEDS ORDERED: BENZONATATE 200 MG CAPSULE PO PRN (10:58)
[2024-09-13] MEDS ORDERED: DICYCLOMINE HCL 10 MG CAPSULE PO PRN (10:58)
[2024-09-13] MEDS ORDERED: POLYETHYLENE GLYCOL (HEALTHYLAX) 3350 17 GM PACKET PO PRN (10:58)
[2024-09-13] MEDS ORDERED: LOPERAMIDE HCL 2 MG CAPSULE PO PRN (10:58)
[2024-09-13] MEDS ORDERED: ALBUTEROL SO4 HFA INHALER IH PRN (10:59)
[2024-09-13] MEDS: BACLOFEN 10 MG TABLET (FP) PO SCH (23:29)
[2024-09-13] MEDS: MELATONIN 5 MG TABLETS PO SCH (23:29)
[2024-09-13] MEDS: THIAMINE 100 MG TABLET PO SCH (23:30)
[2024-09-13] MEDS: MIRTAZAPINE 15 MG TABLET (FP) PO SCH (23:30)
[2024-09-14] MEDS: hydrOXYzine PAMOATE 25 MG CAPSULE (FP) PO PRN (04:07)
[2024-09-14] MEDS: PANTOPRAZOLE 20 MG TABLET PO SCH (06:01)
[2024-09-14] MEDS: HYDROCHLOROTHIAZIDE 25 MG TABLET (FP) PO SCH (09:38)
[2024-09-14] MEDS: TOPIRAMATE 25 MG TABLET PO SCH (09:42)
[2024-09-14] MEDS: PRENATAL VITAMINS W/ FOLIC ACID TABLET (FP) PO SCH (09:42)
[2024-09-14 11:38] LABS: MCHC 31.0 g/dl (32.3-36.5); MEAN CELL VOLUME 87.7 fl (79.0-92.2); MEAN PLT VOLUME 12.8 fl (9.4-12.4); RDW 13.6 % (12.2-16.1)
[2024-09-14 13:23] LABS: CO2 28.0 mmol/L (21-32)
[2024-09-14 13:24] LABS: GLUCOSE,RANDOM 88.0 mg/dL (74-106)
[2024-09-14 13:26] LABS: SGPT/ALT 16.0 U/L (13-61)
[2024-09-14 13:27] LABS: CREATININE 0.8 mg/dL (0.55-1.3); SGOT/AST 10.0 U/L (15-37)
[2024-09-14 13:28] LABS: TOT PROT 6.8 g/dl (6.4-8.2)
[2024-09-14 13:29] LABS: ALK PHOS 80.0 U/L (45-117)
[2024-09-15 06:27] VITALS: PULSE 60; RESP 16
[2024-09-15 09:17] VITALS: BP 124/76; TEMP 98.1
== END 2024-09-15 10:50 | disposition home or self-care (01) | DRG 773 ==
LOC: YASAS 10:23 → Y6N 11:25
PROVIDERS: ADMIT Family Medicine; ATTEND Allergy & Immunology
PROC: HZ2ZZZZ Detoxification Services for Substance Abuse Treatment (ICD-10-PCS; principal; 2024-09-13)
DX: F11.23 Opioid dependence with withdrawal (principal); F14.20 Cocaine dependence, uncomplicated; F12.10 Cannabis abuse, uncomplicated; F19.24 Other psychoactive substance dependence with psychoactive substance-induced mood disorder; F32.A Depression, unspecified; F41.9 Anxiety disorder, unspecified; F43.10 Post-traumatic stress disorder, unspecified; I10 Essential (primary) hypertension; J45.909 Unspecified asthma, uncomplicated; E11.9 Type 2 diabetes mellitus without complications; Z79.84 Long term (current) use of oral hypoglycemic drugs; Z87.891 Personal history of nicotine dependence; Z86.19 Personal history of other infectious and parasitic diseases; Z59.00 Homelessness unspecified
CPT/HCPCS: 36415; 80053; 80305; 80307; 82962; 83036; 85027; 86593; 86780; 93005; 93010; J0475